=== PATIENT | female | born 1955 | race Caucasian/White ===

== ENCOUNTER → 2019-05-30 11:33 | Outpatient (CLI) | payer BC, SELFPAY ==
--- NOTE | ~2019-05-30 | DEXA_ITS ---
Bone Density Report Name: Eva Goodman Age: 63 Sex: Female Ethnicity: White Date of : 1955 Indication: postmenopausal; screening for osteoporosis; asthma or emphysema; hysterectomy; Referring Provider: MINOO OHARA Study: Bone densitometry was performed. Exam Date: May 30, 2019 Accession number: [id number] Bone Density: Region BMD T-score Z-score Classification AP Spine (L1, L2) 1.410 3.9 5.6 Normal Femoral Neck (Left) 0.807 -0.4 1.1 Normal Total Hip (Left) 1.033 0.7 2.0 Normal Femoral Neck (Right) 0.858 0.1 1.6 Normal Total Hip (Right) 1.025 0.7 1.9 Normal Total Hip Mean 1.029 0.7 2.0 Normal World Health Organization criteria for BMD impression classify patients as: Normal (T-score at or above -1.0), Osteopenia (T-score between -1.0 and -2.5), or Osteoporosis (T-score at or below -2.5). 10-year Fracture Risk: FRAX not reported because: All T-scores for Spine Total, Hip Total, Femoral Neck at or above -1.0 Treated for osteoporosis Clinical Information Provided by Patient: Is being treated for osteoporosis Has used the following medications: HRT (i.e. estrogen/hormone therapy), Vitamin D Has the following medical conditions: Asthma or Emphysema, Hysterectomy Patient maximum height was 65 Menopause Age: 39 Drinks caffeinated beverages Onset of menses at age 11 Number of children 2 Impression: The patient has normal bone mass. Discussion: It is important to ask patients whether they are taking their medications and to encourage continued and appropriate compliance with their osteoporosis therapies to reduce fracture risk. It is also important to review their risk factors and encourage appropriate calcium and vitamin D intakes, exercise, fall prevention and other lifestyle measures. Follow-Up: Consider a repeat BMD and Vertebral Fracture Assessment (VFA) exam in 2 years or sooner if medically necessary, to reassess this patient's status. Reported by: ANTOINETTE on 05/30/2019 12:00:00 PM. Reviewed, dictated and finalized at location AGisele BAUER
== END ==
PROVIDERS: PCP Internal Medicine; Visit Provider Obstetrics & Gynecology Gynecology
DX: Z78.0 Asymptomatic menopausal state (principal)
CPT/HCPCS: 77080

== ENCOUNTER → 2019-12-14 13:50 | Outpatient (CLI) | payer BC, SELFPAY ==
--- NOTE | ~2019-12-14 | US_ITS ---
EXAMINATION: US soft tissue head and neck INDICATION: Localized swelling, mass, and lump of the neck TECHNIQUE: High-resolution targeted ultrasound is performed in the area of clinical concern. COMPARISON: None available FINDINGS: There is a 2.6 x 0.7 x 2.7 cm circumscribed isoechoic mass in the right posterior neck in t he area of clinical concern which has the appearance of a lipoma. No suspicious mass is identified. IMPRESSION: 1. Findings consistent with soft tissue lipoma of the left neck corresponding to the palpable mass. Reviewed, dictated and finalized at location B. IMPRESSION: 1. Findings consistent with soft tissue lipoma of the left neck corresponding t o the palpable mass.
== END ==
PROVIDERS: PCP Internal Medicine; Visit Provider Internal Medicine
DX: D17.0 Benign lipomatous neoplasm of skin and subcutaneous tissue of head, face and neck (principal)
CPT/HCPCS: 76536

== ENCOUNTER 2019-12-26 12:58 | Outpatient (CLI) | payer BC, SELFPAY ==
--- NOTE | ~2019-12-26 | MM_ITS ---
EXAMINATION: MM scrn verónica implant BI w aroldo HISTORY: Screening mammogram TECHNIQUE: Craniocaudal and mediolateral oblique 3-D tomosynthesis images with implant displacement a nd synthetic 2-D images were generated. Craniocaudal and mediolateral oblique views of the breasts wi thout implant displacement were obtained using full field digital mammography. CAD analysis was submi tted and interpreted. COMPARISON: 12/20/2018, 11/18/2017 bilateral implant digital screening mammogram examination BREAST PARENCHYMAL COMPOSITION: There are scattered areas of fibroglandular density. FINDINGS: Status post bilateral augmentation mammoplasty. There is no evidence of suspicious mass, ca lcification, or architectural distortion to suggest malignancy in either breast. There has been no casas spicious interval change. IMPRESSION: 1. No mammographic evidence of malignancy. 2. Recommend routine screening mammography in one year. BI-RADS Category 1: Negative Reviewed, dictated and finalized at location A.
== END 2019-12-26 12:59 | disposition home or self-care (01) ==
PROVIDERS: PCP Internal Medicine; Visit Provider Obstetrics & Gynecology Gynecology
DX: Z12.31 Encounter for screening mammogram for malignant neoplasm of breast (principal)
CPT/HCPCS: 77063; 77067

== ENCOUNTER 2020-07-29 12:24 | Outpatient (CLI) | payer BC, SELFPAY ==
--- NOTE | ~2020-07-29 | CT_ITS ---
EXAMINATION: CT abdomen pelvis w con DATE: 07/29/2020 13:00 INDICATION: Right lower quadrant abdominal pain. TECHNIQUE: Computed tomography (CT) of the abdomen and pelvis was performed with 100 mL Omnipaque 350 intravenous contrast. Automated exposure control and iterative reconstruction technique were employe d. The dose-length product was 669.83 mGy-cm. COMPARISON: None. FINDINGS: The visualized portions of the lung bases demonstrate minimal atelectasis. No pleural effus ion. The heart size is normal. No pericardial effusion. The liver and gallbladder are normal. There i s a 13 mm low-attenuation lesion in the spleen, likely a benign lesion such as a hemangioma or cyst. The pancreas and adrenal glands are normal. There are is cortical thinning of the kidneys. There is m ild right hydroureter. There is a 1 mm stone at right ureterovesicular junction. There is an anastomo sis in the rectosigmoid. There is diverticulosis of the colon without evidence of diverticulitis. The re are no dilated loops of bowel. The appendix is normal. There are no pathologically enlarged lymph nodes. There is no free intraperitoneal fluid. There is severe lumbar spondylosis. IMPRESSION: 1. 1 mm stone at right ureterovesicular junction with mild right hydroureter. Reviewed, dictated and finalized at location A.
[2020-07-29 12:56] LABS: Estimated Glomerular Filt Rate 45
[2020-07-29 13:04] LABS: Basophils Absolute Auto 0.1 K/mm3 (0.0-0.1); Eosinophils Absolute Auto 0.1 K/mm3 (0-0.3); Eosinophils Percent Auto 1.7 % (0-4.4); Hematocrit 41.6 % (37.0-47.0); Hemoglobin 14.1 g/dL (12.0-15.0); Immature Granulocyte Absolute 0.01 K/mm3 (0.00-0.031); Immature Granulocyte Percent A 0.1 % (0-0.5); Lymphocytes Percent Auto 51.9 % (18.3-44.2); Mean Corpuscular HGB Conc 33.9 g/dl (32-36); Mean Corpuscular Hemoglobin 32.3 pg (26-34); Mean Corpuscular Volume 95.2 fl (80-100); Mean Platelet Volume 10.7 fl (7.4-10.4); Monocytes Absolute Auto 0.5 K/mm3 (0.1-0.6); Monocytes Percent Auto 6.6 % (2.6-8.5); Neutrophils Absolute Auto 2.7 K/mm3 (1.3-6.7); Neutrophils Percent Auto 38.7 % (45.5-73.1); Platelet Count Result 280 k/mm3 (150-375); Red Blood Count 4.37 M/mm3 (4.2-5.4); Red Cell Distribution Width 11.7 % (11.5-14.5); White Blood Count 6.9 K/mm3 (4.5-10.0)
[2020-07-29 13:14] LABS: Anion Gap 7 mmol/L (8-16); Blood Urea Nitrogen 26 mg/dL (7-17); Calcium 9.7 mg/dL (8.4-10.2); Carbon Dioxide 30 mmol/L (22-30); Chloride 104 mmol/L (98-107); Estimated Glomerular Filt Rate 50; Glucose 100 mg/dL (65-105); Potassium 4.3 mmol/L (3.4-5.0); Sodium 141 mmol/L (137-145)
== END 2020-07-29 12:25 | disposition home or self-care (01) ==
LOC: ANHIMG 12:27
PROVIDERS: PCP Internal Medicine; Visit Provider Internal Medicine
DX: R10.31 Right lower quadrant pain (principal); Z79.899 Other long term (current) drug therapy; N20.1 Calculus of ureter; N13.4 Hydroureter
CPT/HCPCS: 74177; 80048; 85025; Q9967

== ENCOUNTER 2020-07-31 11:57 | Outpatient (CLI) | payer BC, SELFPAY ==
--- NOTE | ~2020-07-31 | XR_ITS ---
XR abdomen/kub 1V 07/31/2020 12:15 INDICATION: Renal pain TECHNIQUE: KUB COMPARISON: CT dated 07/29/2020 FINDINGS: Bowel gas pattern is normal. There is no evidence of free air, mass, organomegaly, ascites or obstruction. No abnormal calculi are seen. The bones appear intact. IMPRESSION: 1: No acute abdominal abnormality identified. Reviewed, dictated and finalized at location B.
== END 2020-07-31 11:58 | disposition home or self-care (01) ==
PROVIDERS: PCP Internal Medicine; Visit Provider Internal Medicine
DX: N20.0 Calculus of kidney (principal)
CPT/HCPCS: 74018

== ENCOUNTER 2020-12-29 14:51 | Outpatient (CLI) | payer BC, SELFPAY ==
--- NOTE | ~2020-12-29 | MM_ITS ---
EXAMINATION: MM scrn verónica implant BI w aroldo HISTORY: Screening mammogram TECHNIQUE: Craniocaudal and mediolateral oblique 3-D tomosynthesis images with implant displacement a nd synthetic 2-D images were generated. Craniocaudal and mediolateral oblique views of the breasts wi thout implant displacement were obtained using full field digital mammography. CAD analysis was submi tted and interpreted. COMPARISON: Comparison to multiple prior studies sequentially, with oldest reviewed study dated 11/18. BREAST PARENCHYMAL COMPOSITION: There are scattered areas of fibroglandular density. FINDINGS: There are subglandular silicone implants. There is no evidence of suspicious mass, calcific ation, or architectural distortion to suggest malignancy in either breast. There has been no suspicio us interval change. IMPRESSION: 1. No mammographic evidence of malignancy. 2. Recommend routine screening mammography in one year. BI-RADS Category 1: Negative Reviewed, dictated and finalized at location A.
== END 2020-12-29 14:52 | disposition home or self-care (01) ==
LOC: ANHIMG 14:54
PROVIDERS: PCP Internal Medicine; Visit Provider Obstetrics & Gynecology Gynecology
DX: Z12.31 Encounter for screening mammogram for malignant neoplasm of breast (principal)
CPT/HCPCS: 77063; 77067

== ENCOUNTER 2021-02-20 20:45 | Emergency (ER) | payer BC, SELFPAY ==
--- NOTE | ~2021-02-20 | CT_ITS ---
EXAMINATION: CT soft tissue neck w con DATE: 02/20/2021 21:57 INDICATION: Syncope and bleeding complication post jamming left earlier in the day. TECHNIQUE: Computed tomography (CT) of the neck was performed with 75 mL Omnipaque-350 intravenous co ntrast. Automated exposure control and iterative reconstruction technique were employed. The dose-grisel gth product was 577.68 mGy-cm. COMPARISON: None FINDINGS: Postoperative changes at the face and neck consistent with reported history of recent chin left. Ther e is a surgical drain entering the subcutaneous tissues posterior to the left ear, extending inferior ly across the neck at the level of the thyroid cartilage and cephalad in the right submandibular rigo on with distal tip lateral to the body of the right mandible. Numerous small foci of scattered postop erative subcutaneous gas extending from the submental region cephalad along the left and right sides of the face. There is a minimal amount of nonloculated fluid tracking along the tissue planes of the more caudal neck predominantly along the strap and struck with a mastoid muscles and along the periph david of the right thyroid lobe. No significant loculated hematomas or evident active extravasation. No evident masses or mass effect. Thyroid gland, submandibular glands and parotid glands are normal and symmetric. No pathologically enlarged cervical lymphadenopathy. Airway and visualized portions of th e upper lungs are clear. Visualized superior mediastinum is unremarkable with normal caliber aortic a rch. Small amount of nonhemodynamically significant atherosclerotic plaque at the bilateral carotid b ulbs. Cervical vasculature is otherwise unremarkable. Orbits are normal. The paranasal sinuses, masto id air cells and middle ear cavities are clear. Severe cervical spondylosis. IMPRESSION: 1. Subcutaneous surgical drain with expected small amount of scattered postoperative subcutaneous gas and nonloculated fluid at the face and neck as detailed above. No significant hematomas or active ex travasation. Reviewed, dictated and finalized at location A. 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 Subcutaneous surgical drain with expected small amount of scattered postoper ative subcutaneous gas and nonloculated fluid at the face and neck as detailed above. No significant hematomas or active extravasation.
--- NOTE | 2021-02-20 20:59 | ECG_ITS ---
Measurements Intervals [place] Rate: 83 P: 45 MI: 167 QRS: -9 QRSD: 99 T: 24 QT: 398 QTc: 469 Interpretive Statements SINUS RHYTHM VOLTAGE CRITERIA FOR LVH BORDERLINE R WAVE PROGRESSION, ANTERIOR LEADS BORDERLINE T WAVE ABNORMALITY- ANT/INF LEADS BORDERLINE ECG Electronically Signed On 02-21-2021 7:56:51 COMPENSATION EXPERT by Nishant Kim D.O.
[2021-02-20 21:01] VITALS: BP 144/78; PULSE 83; RESP 20; TEMP 36.9; O2SAT 98
[2021-02-20] MEDS: ONDANSETRON INJ 4 MG/2 ML VIAL IV PUSH ×2 (21:18→22:06)
[2021-02-20] MEDS: SODIUM CHLORIDE 0.9% IV 1,000 ML 999 ML IV CONT (21:18)
[2021-02-20 21:25] LABS: Basophils Absolute Auto 0.1 K/mm3 (0.0-0.1); Basophils Percent Auto 0.4 % (0.2-1.2); Eosinophils Absolute Auto 0.1 K/mm3 (0-0.3); Eosinophils Percent Auto 0.4 % (0-4.4); Hematocrit 39.6 % (37.0-47.0); Hemoglobin 14.1 g/dL (12.0-15.0); Immature Granulocyte Absolute 0.05 K/mm3 (0.00-0.031); Immature Granulocyte Percent A 0.3 % (0-0.5); Lymphocytes Absolute Auto 4.48 K/mm3 (0.9-3.2); Lymphocytes Percent Auto 29.8 % (18.3-44.2); Mean Corpuscular HGB Conc 35.6 g/dl (32-36); Mean Corpuscular Hemoglobin 33.1 pg (26-34); Mean Platelet Volume 9.8 fl (7.4-10.4); Monocytes Percent Auto 6.5 % (2.6-8.5); Neutrophils Absolute Auto 9.4 K/mm3 (1.3-6.7); Neutrophils Percent Auto 62.6 % (45.5-73.1); Platelet Count Result 313 k/mm3 (150-375); Red Blood Count 4.26 M/mm3 (4.2-5.4); Red Cell Distribution Width 11.9 % (11.5-14.5)
--- NOTE | 2021-02-20 21:32 | ED.SYNCOPE ---
HPI - Syncope General Chief Complaint: Syncope Stated Complaint: ?syncope Time Seen by Provider: 02/20/21 20:57 Source: patient History of Present Illness HPI narrative: Patient presents with syncope. Reports she was at [facility] and had a neck left . She reports procedure lasted an extra hour because there was bleeding. She was discharged home was eating soup felt like she was going to pass out then does not member what happened next. Event was witnessed by her who caught her before she struck the ground. reports she was out of it for approximately 4 minutes she urinated on herself and when she came to she is feeling nauseous and throughout. He called EMS and brought her in for evaluation. Patient reports she continues to feel out of it for which continued nausea. She does not feel like herself. Shortness achiness around her procedure site denies any chest pain shortness of breath or abdominal pain. Family reports she has not eaten much today due to her procedure she has been taking her Percocet postprocedure. Related Data Home Medications Medication Instructions Recorded Confirmed celecoxib [Celebrex] 400 mg PO DAILY 02/20/21 estradiol 0.5 mg PO DAILY 02/20/21 moxifloxacin 400 mg PO DAILY 02/20/21 oxycodone-acetaminophen [Percocet] tablet PO Q4-6H PRN 02/20/21 Allergies Allergy/AdvReac Type Severity Reaction Status Date / Time cefadroxil Allergy Unknown Unknown Verified 08/14/20 08:40 Cephalosporins Allergy Unknown Unknown Verified 08/14/20 08:40 morphine Allergy Unknown Unknown Verified 08/14/20 08:40 Penicillins Allergy Unknown Unknown Verified 08/14/20 08:40 Sulfa (Sulfonamide Allergy Unknown Unknown Verified 08/14/20 08:40 Antibiotics) Review of Systems Review of Systems: CONSTITUTIONAL: Denies fever, chills, or sweats. EYES: Denies visual changes, redness, or discharge. ENT: Denies rhinorrhea, congestion, sore throat, or otalgia. CARDIOVASCULAR: Denies chest pain, palpitations, or edema. RESPIRATORY: Denies cough or dyspnea. GASTROINTESTINAL: Denies abdominal pain, nausea, vomiting, or diarrhea. GENITOURINARY: Denies dysuria or hematuria. SKIN: Denies rash or itching. MUSCULOSKELETAL: Denies back pain, joint pain, or myalgia. NEUROLOGIC: Denies headache, numbness, or focal weakness. PSYCHIATRIC: Denies anxiety or depression. 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 HEAD: Normocephalic, atraumatic. EYES: PERRLA and EOMI. ENT: Nares clear, no rhinorrhea or epistaxis. Mucous membranes moist. NECK: Supple. No masses. No JVD CHEST: Clear to auscultation. No respiratory distress. No wheezes rales or rhonchi HEART: Regular rate and rhythm. No murmur heard. Normal peripheral pulses. ABDOMEN: Soft, nontender, nondistended, normal active bowel sounds. EXTREMITIES: Normal range of motion. No edema. SKIN: Warm, dry, no rash. NEURO: No focal deficits. Alert and oriented x3. PSYCH: Normal mood and affect. Course Reevaluation(s) Reevaluation #1: Patient reports feeling much improved after supportive therapies. Results and plan reviewed with patient. Patient is comfortable with outpatient bebeto
[2021-02-20 21:33] LABS: Alanine Aminotransferase 30 U/L (4-35); Albumin Level 4.8 g/dL (3.5-5.1); Alkaline Phosphatase 61 U/L (38-126); Anion Gap 11 mmol/L (8-16); Aspartate Amino Transferase 27 U/L (14-36); Bilirubin,Total 0.5 mg/dL (0.2-1.3); Blood Urea Nitrogen 30 mg/dL (7-17); Carbon Dioxide 23 mmol/L (22-30); Chloride 99 mmol/L (98-107); Estimated Glomerular Filt Rate > 60; Glucose 171 mg/dL (65-110); Potassium 3.3 mmol/L (3.4-5.0); Sodium 133 mmol/L (137-145)
[2021-02-20] MEDS: PROCHLORPERAZINE EDISYLATE 10 MG/2 ML VIAL IV PUSH (22:42)
[2021-02-20] MEDS: DEXTROSE 5%/0.45% SOD CHL 1,000 ML 500 ML IV CONT (22:42)
[2021-02-20 22:45] VITALS: BP 138/60; PULSE 78; RESP 18; O2SAT 99
--- NOTE | 2021-02-20 23:20 | PC.NURSE ---
Assuming care of pt. Pt discharged at this time pt and requesting to finish IV fluids before they go.
[2021-02-21 01:38] VITALS: BP 122/69; PULSE 84; RESP 16; O2SAT 94
== END 2021-02-21 01:39 | disposition home or self-care (01) ==
PROVIDERS: Emergency Provider Emergency Medicine; PCP Internal Medicine
DX: R55 Syncope and collapse (principal); Z98.890 Other specified postprocedural states; R73.03 Prediabetes; E55.9 Vitamin D deficiency, unspecified; F41.9 Anxiety disorder, unspecified; Z90.49 Acquired absence of other specified parts of digestive tract; R94.31 Abnormal electrocardiogram [ECG] [EKG]
CPT/HCPCS: 36415; 70491; 80053; 85025; 93005; 96361; 96365; 96375; 96376; 99285; J0131; J0780; J2405; J7030; Q9967

== ENCOUNTER → 2021-04-21 | Outpatient (REF) | payer BC, SELFPAY | END | disposition home or self-care (01) | LOC: ANHLAB 13:52 | PROVIDERS: PCP Internal Medicine; Visit Provider Nurse Practitioner | DX: L30.8 Other specified dermatitis (principal) | CPT/HCPCS: 88305; 88342 ==

== ENCOUNTER 2021-06-01 10:17 | Outpatient (CLI) | payer BC, SELFPAY ==
--- NOTE | ~2021-06-01 | CT_ITS ---
EXAMINATION: CT chest high resolution [facility] EXAM DATE: 06/01/2021 10:36 INDICATION: D86.3 - Sarcoidosis of skin . TECHNIQUE: Spiral CT of the chest without contrast. HRCT. Axial, coronal and sagittal images of the chest were reviewed. Coronal maximum intensity pixel images of chest reviewed. The dose-length prod uct (DLP) for this examination was 276.14 mGy-cm. The exposure was tailored according to patient siz e (auto mA exposure control), and iterative reconstruction (ASIR) was used as additional dose reducti on technique. There is no prior study for comparison. FINDINGS: No interstitial lung disease evident on HRCT. The lungs are clear. There are no pleural or pericardial effusions. Tracheobronchial tree is patent. There is no mediastinal, hilar or axilla ry lymphadenopathy. There is no pneumothorax. Heart normal in size. There is mild coronary adebayo rial calcification, arterial sclerosis. Upper abdomen is unremarkable. There is mild thoracic spon dylosis without osteoblastic or osteolytic lesions identified. IMPRESSION: Unremarkable CT chest exam. Reviewed, dictated and finalized at location B. ETING SALES MANAGER IMPRESSION: Unremarkable CT chest exam.
== END 2021-06-01 10:18 | disposition home or self-care (01) ==
LOC: ANHIMG 10:22
PROVIDERS: PCP Internal Medicine; Visit Provider Internal Medicine
DX: D86.3 Sarcoidosis of skin (principal)
CPT/HCPCS: 71250

== ENCOUNTER 2022-02-10 08:33 | Outpatient (CLI) | payer BC, SELFPAY ==
--- NOTE | ~2022-02-10 | MM_ITS ---
EXAMINATION: MM scrn verónica implant BI w aroldo HISTORY: Screening mammogram TECHNIQUE: Craniocaudal and mediolateral oblique 3-D tomosynthesis images with implant displacement a nd synthetic 2-D images were generated. Craniocaudal and mediolateral oblique views of the breasts wi thout implant displacement were obtained using full field digital mammography. CAD analysis was submi tted and interpreted. COMPARISON: 12/29/2020, 12/26/2019, 12/2018 bilateral implant screening mammogram examinations BREAST PARENCHYMAL COMPOSITION: There are scattered areas of fibroglandular density. FINDINGS: Status post bilateral augmentation mammoplasty. There is no evidence of suspicious mass, ca lcification, or architectural distortion to suggest malignancy in either breast. There has been no casas spicious interval change. IMPRESSION: 1. No mammographic evidence of malignancy. 2. Recommend routine screening mammography in one year. BI-RADS Category 1: Negative Reviewed, dictated and finalized at location A. SORTER
== END 2022-02-10 08:34 | disposition home or self-care (01) ==
PROVIDERS: PCP Internal Medicine; Visit Provider Obstetrics & Gynecology Gynecology
DX: Z12.31 Encounter for screening mammogram for malignant neoplasm of breast (principal)
CPT/HCPCS: 77063; 77067

== ENCOUNTER 2022-06-01 16:59 | Outpatient (CLI) | payer BC, SELFPAY ==
--- NOTE | ~2022-06-01 | CT_ITS ---
EXAMINATION: CT abdomen pelvis wo con DATE: 06/01/2022 17:09 INDICATION: abdominal pain and fullness- r/o hernia TECHNIQUE: Computed tomography (CT) of the abdomen and pelvis was performed without intravenous contr ast. Automated exposure control and iterative reconstruction technique were employed. The dose-length product was 792.62 mGy-cm. COMPARISON: 07/29/2020. FINDINGS: Lower thorax: Bilateral calcified breast implants. Aortic valve calcification. Liver: Normal. Biliary/Gallbladder: Gallbladder is normal. No bile duct dilation. Pancreas: No mass or duct dilation. Spleen: Stable splenic cyst or hemangioma. Adrenals:No mass. Kidneys: No mass, stone, or hydronephrosis. GI tract: Uncomplicated rectosigmoid anastomosis. No small or large bowel dilation. Normal appendix. Diverticulosis without diverticulitis. Mesentery/Peritoneum: No ascites, mass, or free air. Retroperitoneum: No mass. Atherosclerotic abdominal aortic and/or arterial calcifications. Pelvis: Pelvic organs are within normal limits. Soft Tissues: Soft tissues and body wall unremarkable. Bones: No acute osseous finding. IMPRESSION: No acute abdominal pelvic process detected. Reviewed, dictated and finalized at location K. LY PRESERVATION CASEWORKER
== END 2022-06-01 17:00 | disposition home or self-care (01) ==
LOC: ANHIMG 17:00
PROVIDERS: PCP Internal Medicine; Visit Provider Internal Medicine
DX: R10.31 Right lower quadrant pain (principal)
CPT/HCPCS: 74176

== ENCOUNTER 2022-10-11 12:13 | Observation (INO) | payer BC, SELFPAY ==
[2022-10-11] VITALS (12 sets, daily range): BP systolic 103–146; BP diastolic 45–76; PULSE 67–76; RESP 14–21; TEMP 35.8–36.4; O2SAT 90–98
--- NOTE | ~2022-10-11 | US_ITS ---
EXAMINATION: US carotid duplex BI DATE: 10/12/2022 10:36 INDICATION: Syncope TECHNIQUE: Grayscale, color Doppler, and pulsed Doppler images of the cervical carotid arteries were obtained. The degree of vessel stenosis is placed in one of the following categories: normal, <50%, 5 0-69%, >=70% but less than near-occlusion, near-occlusion, or total occlusion. Note that percent sten osis relative to normal distal artery lumen diameter is indirectly measured from velocity measurement s as described by Matteo, et al. Radiology 2003; 229:340-346. COMPARISON: None. FINDINGS: RIGHT: The right common carotid artery (CCA) peak systolic velocity (PSV) is 153 cm/s. The right internal ca rotid artery (ICA) PSV is 117 cm/s. The right ICA end-diastolic velocity (EDV) is 23 cm/s. The right ICA/CCA PSV ratio is 0.8. Grayscale and color Doppler images yield an estimate of <50% diameter reduc tion from plaque in the ICA. The external carotid artery (ECA) PSV is 109 cm/s. There is antegrade fl ow in the right vertebral artery. LEFT: The left CCA PSV is 138 cm/s. The left ICA PSV is 86 cm/s. The left ICA EDV is 26 cm/s. The left ICA/ CCA PSV ratio is 0.6. Grayscale and color Doppler images yield an estimate of <50% diameter reduction from plaque in the ICA. The ECA PSV is 52 cm/s. There is antegrade flow in the left vertebral artery . IMPRESSION: 1. <50% stenosis in the right internal carotid artery. 2. <50% stenosis in the left internal carotid artery. Reviewed, dictated and finalized at location A.
--- NOTE | 2022-10-11 12:22 | ECG_ITS ---
Measurements Intervals [place] Rate: 65 P: 23 PA: 189 QRS: -4 QRSD: 97 T: 24 QT: 410 QTc: 429 Interpretive Statements SINUS RHYTHM DELAYED PRECORDIAL R/S TRANSITION CONSIDER INFERIOR INFARCT, AGE INDETERMINATE BASELINE ARTIFACT- V6 ABNORMAL ECG COMPARED TO ECG 02/20/2021 21:12:26 NO SIGNIFICANT CHANGES Electronically Signed On 10-11-2022 12:45:03 CDT by Nishant Kim D.O.
[2022-10-11 12:42] LABS: Basophils Percent Auto 0.4 % (0.2-1.2); Eosinophils Absolute Auto 0.1 K/mm3 (0-0.3); Hemoglobin 12.9 g/dL (12.0-15.0); Immature Granulocyte Absolute 0.03 K/mm3 (0.00-0.031); Immature Granulocyte Percent A 0.3 % (0-0.5); Lymphocytes Absolute Auto 3.25 K/mm3 (0.9-3.2); Lymphocytes Percent Auto 34.6 % (18.3-44.2); Mean Corpuscular HGB Conc 33.9 g/dl (32-36); Mean Corpuscular Hemoglobin 32.2 pg (26-34); Mean Corpuscular Volume 94.8 fl (80-100); Mean Platelet Volume 10.3 fl (7.4-10.4); Monocytes Absolute Auto 0.5 K/mm3 (0.1-0.6); Monocytes Percent Auto 5.2 % (2.6-8.5); Neutrophils Absolute Auto 5.5 K/mm3 (1.3-6.7); Neutrophils Percent Auto 58.5 % (45.5-73.1); Platelet Count Result 258 k/mm3 (150-375); Red Blood Count 4.01 M/mm3 (4.2-5.4); Red Cell Distribution Width 12.1 % (11.5-14.5); White Blood Count 9.4 K/mm3 (4.5-10.0)
[2022-10-11 12:55] LABS: Alanine Aminotransferase 28 U/L (6-35); Albumin Level 4.6 g/dL (3.5-5.1); Alkaline Phosphatase 46 U/L (38-126); Anion Gap 13 mmol/L (8-16); Aspartate Amino Transferase 25 U/L (14-36); Bilirubin,Total 0.7 mg/dL (0.2-1.3); Blood Urea Nitrogen 45 mg/dL (7-17); Calcium 9.5 mg/dL (8.4-10.2); Carbon Dioxide 20 mmol/L (22-30); Chloride 104 mmol/L (98-107); Estimated CRCL calculation 29 ml/min; Estimated Glomerular Filt Rate 28; Glucose 149 mg/dL (65-110); Potassium 3.3 mmol/L (3.4-5.0); Sodium 137 mmol/L (137-145)
--- NOTE | 2022-10-11 13:31 | ED.SYNCOPE ---
HPI - Syncope General Chief Complaint: Syncope Stated Complaint: syncope Time Seen by Provider: 10/11/22 13:03 History of Present Illness HPI narrative: Patient is a 67-year-old female with a history of hypothyroidism, hypertension, hyperlipidemia presenting with a syncopal episode. Patient states that she got up this morning was unable to complete her daily walk without issues. Later in the morning she had an episode while she was standing where she felt extremely hot. States that then she developed tunnel vision and syncopized. States that she immediately started vomiting when she regained consciousness. EMS was called who gave her some Zofran and patient states that she feels improved. States that she still has some waves of nausea. She denies any chest pain, shortness of breath, leg swelling, palpitations, numbness or weakness. States that she has been on a low-carb diet for the last several months in an attempt to lose weight. States that she has not been drinking her normal amount of daily fluids. Related Data Home Medications Medication Instructions Recorded Confirmed estradiol 0.5 mg tablet 1 mg PO DAILY 02/20/21 10/11/22 alprazolam 0.25 mg tablet 0.25 mg PO BID PRN anxiety 10/11/22 10/11/22 Allergies Allergy/AdvReac Type Severity Reaction Status Date / Time cefadroxil Allergy Unknown Swelling Verified 10/11/22 17:52 Cephalosporins Allergy Unknown Unknown Verified 10/11/22 17:52 morphine Allergy Unknown Unknown Verified 10/11/22 17:52 Penicillins Allergy Unknown Unknown Verified 10/11/22 17:52 Sulfa (Sulfonamide Allergy Unknown Unknown Verified 10/11/22 17:52 Antibiotics) Review of Systems Review of Systems: All systems reviewed & are unremarkable except as noted in HPI and below PMFSH Past Medical History Medical History (Updated 10/18/22 @ 15:31 by Stacy Croft MD) Anxiety Chronic pain Cutaneous sarcoidosis Degenerative joint disease Prediabetes Vitamin D deficiency Surgical History Surgical History (Updated 10/11/22 @ 16:06 by Cailin Purdy PA-C) History of abdominoplasty History of bilateral knee replacement History of bowel resection History of total abdominal hysterectomy and bilateral salpingo-oophorectomy Family History Family History Other Cerebrovascular accident Diabetes mellitus Heart disease Hypertension Social History Social History Social History: Surrogate medical decision maker: Grayson Goodman, spouse. Code status: Full code. Smoking status: Never smoker Alcohol intake: never Substance use: never Substance use type: does not use Lack of Transportation: No Lack of Food: Never True Current Housing: I Have Housing Concerned About Future Housing: No Difficulty Paying Gas/Electric Bills: No Difficulty Paying for Meds: No Currently Unemployed: No Education: Don't Know Difficulty w/ Childcare or Family Care: No Living arrangements: with family Additional living arrangements comments: Lives with spouse in [place]. 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 Spiritual care concerns: No Exam Narrative: GENERAL: Well-appearing, well-nourished, and in no acute distress. Pleasant and cooperative HEAD: Normocephalic, atraumatic. EYES: PERRLA and EOMI. ENT: Nares clear, no rhinorrhea or epistaxis. Mucous membranes slightly dry NECK: Supple. CHEST: Clear to auscultation. No respiratory distress. HEART: Regular rate and rhythm. No murmur heard. Normal peripheral pulses. ABDOMEN: Soft, nontender, nondistended EXTREMITIES: Normal range of motion. No edema. SKIN: Warm, dry, no rash. NEURO: No focal deficits. Alert and oriented x3. PSYCH: Normal mood and affect. Course Vital Signs Vital signs: Vital Signs Temperature 97.6 F 10/11/22 12:15 Pulse Rate 7
[2022-10-11] MEDS: SODIUM CHLORIDE 0.9% IV 1,000 ML 999 ML IV CONT ×3 (13:50→16:31)
[2022-10-11] MEDS: ONDANSETRON INJ 4 MG/2 ML VIAL IV PUSH (13:50)
[2022-10-11 14:11] LABS: Lipase 211 U/L (23-300); Magnesium 1.7 mg/dL (1.6-2.3)
[2022-10-11 14:24] LABS: Troponin I < 0.012 ng/mL (0.000-0.034)
[2022-10-11 15:17] LABS: Add Urine Microscopic? YES; Appearance Urine Clear (Clear); Bacteria Urine None Seen /hpf; Bilirubin Urine Negative (Negative); Blood Urine Negative (Negative); Color Urine Yellow (Yellow); Glucose Urine UA Negative (Negative); Hyaline Casts Urine Present /lpf; Ketones Urine Negative (Negative); Leukocyte Esterase Ur Negative LEU/UL (Negative); Nitrate Urine Negative (Negative); Protein Urine Trace mg/dL (Negative); RBC Urine 0-2 /hpf (0-2); Specific Grav Ur 1.016 (1.001-1.035); Squamous Epithelial Cell Urine Occasional /hpf (Few); Urobilinogen Urine 0.2 mg/dL (<2.0); WBC Urine 0-5 /hpf; pH Urine 5.5 (5.0-9.0)
--- NOTE | 2022-10-11 16:01 | PM.IMHP ---
H&P: HPI History of Present Illness Date/Time: 10/11/22 16:15 Chief Complaint: Syncope. Narrative: This is a very pleasant 67-year-old female with hypertension, hyperlipidemia, and hypothyroidism who presented to the emergency department via EMS for evaluation after a syncopal episode. The patient provides the following history. She felt fine when she got up this morning and went on a 2 mi walk per usual. 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 While at 1 of the appointments she was standing up speaking to her friend when she suddenly felt hot and lightheaded. Her vision started to darken, she was weak, and luckily a bystander was able to catch her and lower her down so she did not fall. She briefly lost consciousness and when she came to she had 1 episode of emesis. She has been trying to lose weight recently and has been taking Wegovy weekly for the last several weeks. She has been on a low carbohydrate diet and she doesn't think she has been eating or drinking enough. She has been busy planning the aforementioned event and she got back from a trip to [place] this past Tuesday and she admits that it was very hot and again she probably did not have enough oral intake. On arrival to the emergency department her blood pressure was 129/76. Labs were significant for a sodium of 137, potassium 3.3, carbon dioxide 20, BUN 45, creatinine 1.80, glucose 149. EKG showed sinus rhythm with delayed precordial R/S transition QTC 429, and Q-waves in lead 3. She received 3 L of IV fluid in the ED and she was admitted to the floor for further treatment and observation. She has no known history of kidney disease. She is on lisinopril, hydrochlorothiazide, 800 mg of ibuprofen twice a day (has taken for many years for arthritic pain) and she has not had any recent change in medications. No fever, chills, sweats, or recent illnesses. She denies chest pain, pleuritic pain, and shortness of breath. Review of Systems Review of Systems: Twelve systems were reviewed and are negative except for as per HPI. [facility] Past Medical History Medical History (Updated 10/12/22 @ 00:37 by Cailin Purdy PA-C) Anxiety Chronic pain Cutaneous sarcoidosis Degenerative joint disease Prediabetes Vitamin D deficiency Surgical History Surgical History (Updated 10/11/22 @ 16:06 by Cailin Purdy PA-C) History of abdominoplasty History of bilateral knee replacement History of bowel resection History of total abdominal hysterectomy and bilateral salpingo-oophorectomy Family History Family History Other Cerebrovascular accident Diabetes mellitus Heart disease Hypertension Social History Social History Social History: Surrogate medical decision maker: Grayson Maxine, spouse. Code status: Full code. Smoking status: Never smoker Alcohol intake: never Substance use: never Substance use type: does not use Lack of Transportation: No Lack of Food: Never True Current Housing: I Have Housing Concerned About Future Housing: No Difficulty Paying Gas/Electric Bills: No Difficulty Paying for Meds: No Currently Unemployed: No Education: Don't Know Difficulty w/ Childcare or Family Care: No Living arrangements: with family Additional living arrangements comments: Lives with spouse in [place]. 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 Spiritual care concerns: No Meds Home Medications and Allergies Home Medications Medication Instructions Recorded Confirmed Type estradiol 0.5 mg tablet 1 mg PO DAILY 02/20/21 10/11/22 History rosuvastatin 40 mg tablet 40 mg PO DAILY #90 tabs 12/08/21 10/11/22 Rx ezetimibe 10 mg tablet (Zetia) 10 mg PO DAILY #90 tabs 07/05/22 10/11/22 Rx valacyclovir 1 gram tablet 1,000 mg PO TI
[2022-10-11] MEDS: POTASSIUM CHLORIDE 20 MEQ ER TABLET 40 MEQ PO (16:31)
[2022-10-11] MEDS: ALPRAZolam (*CRX) 0.5 MG TABLET PO (16:31)
--- NOTE | 2022-10-11 17:37 | ADMGEN ---
This patient, Eva Goodman, was admitted to Medical Room 252-01. Patient/family oriented to hospital policies and general routines including ID bracelet, bed and alarms, visiting hours, pain management, procedures, bathroom and other care routines, personal items, smoking policy, room service/diet, and visiting hours. Information on how to activate the Rapid Response Team has been discussed. Patient/Family are encouraged to report perceived risks to care and to ask questions if they do not understand what they are told or what they should do.
[2022-10-12] VITALS (8 sets, daily range): BP systolic 95–135; BP diastolic 50–65; PULSE 67–85; RESP 17; TEMP 36.1; O2SAT 97
[2022-10-12] MEDS: LACTATED RINGERS 1,000 ML 125 ML IV CONT
[2022-10-12] MEDS: LEVOTHYROXINE SODIUM 125 MCG TABLET PO (05:30)
[2022-10-12 05:45] LABS: Hemoglobin 11.4 g/dL (12.0-15.0); Mean Corpuscular HGB Conc 33.5 g/dl (32-36); Mean Corpuscular Hemoglobin 32.8 pg (26-34); Mean Corpuscular Volume 97.7 fl (80-100); Mean Platelet Volume 10.1 fl (7.4-10.4); Platelet Count Result 215 k/mm3 (150-375); Red Blood Count 3.48 M/mm3 (4.2-5.4); Red Cell Distribution Width 12.4 % (11.5-14.5); White Blood Count 8.9 K/mm3 (4.5-10.0)
[2022-10-12 06:02] LABS: Anion Gap 0 mmol/L (8-16); Blood Urea Nitrogen 34 mg/dL (7-17); Calcium 8.4 mg/dL (8.4-10.2); Carbon Dioxide 29 mmol/L (22-30); Chloride 107 mmol/L (98-107); Estimated CRCL calculation 43 ml/min; Estimated Glomerular Filt Rate 45; Glucose 110 mg/dL (65-110); Magnesium 1.9 mg/dL (1.6-2.3); Potassium 4.1 mmol/L (3.4-5.0); Sodium 136 mmol/L (137-145)
[2022-10-12] MEDS: ROSUVASTATIN 10 MG TABLET 40 MG PO (08:54)
[2022-10-12] MEDS: estradioL 1 MG TABLET PO (08:54)
[2022-10-12] MEDS: EZETIMIBE 10 MG TABLET PO (08:54)
[2022-10-12] MEDS: valACYclovir HCL 500 MG TABLET 1000 MG PO (08:57)
--- NOTE | 2022-10-12 11:29 | PM.DS ---
DS: Admitting Diagnosis Discharge Date 10/12/2022 Admitting Diagnosis Syncope Acute kidney injury Dehydration Hypokalemia Heart murmur Anxiety DS: Discharge Diagnosis Discharge Diagnosis (1) Syncope: Code(s): R55 - Syncope and collapse Status: Acute (2) Acute kidney injury: Code(s): N17.9 - Acute kidney failure, unspecified Status: Acute (3) Hypokalemia: Code(s): E87.6 - Hypokalemia Status: Acute (4) Dehydration: Code(s): E86.0 - Dehydration Status: Acute (5) Heart murmur: Code(s): R01.1 - Cardiac murmur, unspecified Status: Acute (6) Anxiety: Code(s): F41.9 - Anxiety disorder, unspecified Status: Acute DS: Summary Hospital Course Reason for hospitalization: This is a 67 year old female patient who was evaluated in the emergency department after an episode of syncope. She was found to have acute kidney injury with an elevated creatinine to 1.8. Patient was also deemed to be profoundly dehydrated. Hospital Course: Patient was admitted to the hospital status post 3 L of IV fluid resuscitation for severe dehydration with syncope and DARLENE. Patient reports no events overnight but 1 episode of explosive diarrhea this morning. Labs were redrawn this morning show creatinine has improved to 1.2. Incidentally, patient's primary care provider Dr. Mays saw the patient in the hospital and stated that he does not want her to take lisinopril/ HCTZ until follow-up in the clinic. Carotid Dopplers were completed with less than 50% stenosis bilaterally. patient now feels back to baseline is eating and drinking pain med and having urine output regularly that is clear in color. Patient has a known cardiac murmur on for the last 45 years that has been stable and unchanged. Echo was ordered due to syncope and murmur but patient does not want to stay for this test as Dr. Mays told her it probably wasn't needed. Outpatient echo ordered and in patient order canceled. Status at Discharge Cognitive/behavioral status at discharge: Awake, alert, oriented and pleasant Functional status at discharge: independent ambulation Time Spent with Patient Time attestation: Total time spent providing and/or coordinating discharge services: Time spent: Less than 30 minutes Exam Narrative: Const:?? Well-developed fe male seated uprigh t on the edge of t he bed in no acute distress. ? HENMT:?? Normocephalic, at raumatic. Nares pa tent. Moist mucous membranes. ? Eyes:?? Pupils are reacti ve.? Extraocular m otions intact.? Sc lerae anicteric. ? Neck:?? Supple. No JVD or obvious bruits. ? Resp:?? Respirations are nonlabored and tobin gs are clear to au scultation. ? Cardio:?? Regular rate rhyt hm with normal S1- S2. Soft systolic murmur at the left sternal border. ? GI:?? Abdomen is soft, nontender, nondist ended with positiv e bowel sounds. ? Skin:?? Warm, dry, and ta n. ? Neuro:?? Alert. Cranial ne rves 2-12 are jose antonio sly intact. No reji ss focal deficits to casual conversa tion. ? Extrem:?? No cyanosis, club santhosh, or edema. Pe ripheral pulses in tact. No palpable knots or cords. ? Psych:?? Pleasant and coop
== END 2022-10-12 12:29 | disposition home or self-care (01) ==
LOC: ANHED 13:06 → ANH2MED 17:14
PROVIDERS: Physician Assistant; Preventive Medicine Aerospace Medicine; Admitting Provider Internal Medicine; Emergency Provider Emergency Medicine; PCP Internal Medicine; Visit Provider Internal Medicine
DX: R55 Syncope and collapse (principal); N17.9 Acute kidney failure, unspecified; E87.6 Hypokalemia; E86.0 Dehydration; R01.1 Cardiac murmur, unspecified; F41.9 Anxiety disorder, unspecified; E03.9 Hypothyroidism, unspecified; I10 Essential (primary) hypertension; E78.5 Hyperlipidemia, unspecified; R11.2 Nausea with vomiting, unspecified; E55.9 Vitamin D deficiency, unspecified; R94.31 Abnormal electrocardiogram [ECG] [EKG]; R73.03 Prediabetes; R79.89 Other specified abnormal findings of blood chemistry; F17.210 Nicotine dependence, cigarettes, uncomplicated; Z79.890 Hormone replacement therapy; Z79.891 Long term (current) use of opiate analgesic; Z82.49 Family history of ischemic heart disease and other diseases of the circulatory system
CPT/HCPCS: 36415; 80048; 80053; 81001; 83690; 83735; 84484; 85025; 85027; 93005; 93880; 96361; 96374; 99285; A9270; G0378; J2405; J7030; J7120

== ENCOUNTER 2023-04-13 09:02 | Outpatient (CLI) | payer BC, SELFPAY ==
--- NOTE | ~2023-04-13 | MM_ITS ---
EXAMINATION: MM scrn verónica implant BI w aroldo HISTORY: Screening mammogram TECHNIQUE: Craniocaudal and mediolateral oblique 3-D tomosynthesis images with implant displacement a nd synthetic 2-D images were generated. Craniocaudal and mediolateral oblique views of the breasts wi thout implant displacement were obtained using full field digital mammography. CAD analysis was submi tted and interpreted. COMPARISON: 02/10/2022, 12/29/2020, 12/26/2019 BREAST PARENCHYMAL COMPOSITION: There are scattered areas of fibroglandular density. FINDINGS: There is no evidence of suspicious mass, calcification, or architectural distortion to sugg est malignancy in either breast. There has been no suspicious interval change. IMPRESSION: 1. No mammographic evidence of malignancy. 2. Recommend routine screening mammography in one year. BI-RADS Category 1: Negative Reviewed, dictated and finalized at location A. ICAL PLANT WORKER
== END 2023-04-13 09:03 | disposition home or self-care (01) ==
LOC: ANHIMG 09:06
PROVIDERS: PCP Internal Medicine; Visit Provider Obstetrics & Gynecology Gynecology
DX: Z12.31 Encounter for screening mammogram for malignant neoplasm of breast (principal)
CPT/HCPCS: 77063; 77067

== ENCOUNTER 2023-05-24 13:09 | Outpatient (CLI) | payer BC, SELFPAY ==
--- NOTE | ~2023-05-24 | DEXA_ITS ---
Bone Density Report Name: SATYA RAI Age: 67 Sex: Female Ethnicity: White Date of : 1955 Indication: postmenopausal; screening for osteoporosis; height loss; hysterectomy; Referring Provider: MINOO OHARA Study: Bone densitometry was performed. Exam Date: May 24, 2023 Accession number: [id number] Bone Density: Region BMD T-score Z-score Classification AP Spine(L1, L2, L4) 1.545 4.6 6.7 Normal Femoral Neck (Left) 0.834 -0.1 1.6 Normal Total Hip (Left) 1.008 0.5 2.0 Normal Femoral Neck (Right) 0.865 0.1 1.9 Normal Total Hip (Right) 1.010 0.6 2.0 Normal Total Hip Mean 1.009 0.6 2.0 Normal World Health Organization criteria for BMD impression classify patients as: Normal (T-score at or above -1.0), Osteopenia (T-score between -1.0 and -2.5), or Osteoporosis (T-score at or below -2.5). 10-year Fracture Risk: FRAX not reported because: All T-scores for Spine Total, Hip Total, Femoral Neck at or above -1.0 Clinical Information Provided by Patient: Smokes Has used the following medications: Vitamin D Has the following medical conditions: Hysterectomy Patient maximum height was 65 Menopause Age: 44 Drinks caffeinated beverages Onset of menses at age 11 Number of children 2 Impression: The patient has normal bone mass. The patient has risk factors, including: smoking. Discussion: BONE DENSITY IS ABOVE THE MINIMUM DESIRABLE LEVEL AT ALL SKELETAL SITES TESTED. This patient?s bone mineral density is above the minimum desirable level (T-score -1.0 or better) at all sites measured. The patient should follow a healthful lifestyle (good nutrition with adequate calcium and vitamin D, and appropriate weight-bearing exercise). Follow-Up: Consider repeating this study in 5 years or sooner if there is some new clinical indication. Reported by: ANTOINETTE on 05/25/2023 10:21:00 AM. Reviewed, dictated and finalized at location AGisele BAUER
== END 2023-05-24 13:10 | disposition home or self-care (01) ==
PROVIDERS: PCP Internal Medicine; Visit Provider Obstetrics & Gynecology Gynecology
DX: Z78.0 Asymptomatic menopausal state (principal); F17.200 Nicotine dependence, unspecified, uncomplicated
CPT/HCPCS: 77080

== ENCOUNTER 2023-05-25 11:17 | Outpatient (CLI) | payer BC, SELFPAY ==
--- NOTE | ~2023-05-25 | XR_ITS ---
Lumbosacral Spine: AP and lateral views Clinical History: Pain Findings: The normal lordotic curve is maintained. No fracture identified. There is minimal grade 1 r etrolisthesis of L2 over L3. There is severe degenerative spurring at L2-L3, L3-L4, with moderate deg enerative tearing at L4-L5. There is severe facet arthropathy from L3 through S1. The sacroiliac join ts are normally outlined. Impression: Moderate degenerative spondylosis, as above. Minimal grade 1 retrolisthesis of L2 over L3. Reviewed, dictated and finalized at location M. OR NET SOFTWARE ENGINEER Impression: Moderate degenerative spondylosis, as above. Minimal grade 1 retrolisthesis of L2 over L3.
--- NOTE | ~2023-05-25 | XR_ITS ---
AP and lateral views of the bilateral hips Clinical history: Pain Findings: No acute fracture or dislocation is seen. Osseous alignment is anatomic. Bilateral hip and SI joint spaces are preserved. Soft tissues are unremarkable. Impression: No significant abnormality is seen. Reviewed, dictated and finalized at location . CLING TECH Impression: No significant abnormality is seen.
== END 2023-05-25 11:18 | disposition home or self-care (01) ==
LOC: ANHIMG 11:19
PROVIDERS: PCP Internal Medicine; Visit Provider Internal Medicine
DX: M79.605 Pain in left leg (principal); R20.2 Paresthesia of skin; M15.9 Polyosteoarthritis, unspecified; M25.552 Pain in left hip; M25.551 Pain in right hip; M43.06 Spondylolysis, lumbar region
CPT/HCPCS: 72100; 73521

== ENCOUNTER 2023-09-15 08:21 | Outpatient (CLI) | payer BC, SELFPAY ==
--- NOTE | ~2023-09-15 | CT_ITS ---
Clinical Indication: Abdominal pain CT Scan of the Chest, Abdomen, and Pelvis with Contrast: Technique: Contiguous sections were acquired throughout the chest, abdomen, and pelvis after intraven ous administration of 100 cc of Omnipaque 350. Dose reduction technique was used on this scan by magdalena crumping automated exposure control and iterative reconstruction technique. The dose-length product (DL P) was 783.10 mGy-cm. COMPARISON: 06/01/2022 Findings: There is no evidence of any significant mediastinal, hilar or axillary lymphadenopathy. The mediastin al soft tissues and vascular structures appear normal. There is no evidence of pleural or pericardial effusion. The lungs are clear. No pulmonary nodules or infiltrates are noted. The liver, spleen, pancreas, gallbladder, adrenals and kidneys are within normal limits. There are at herosclerotic calcifications of the aorta. No lymphadenopathy. No bowel obstruction or bowel wall thickening. There is no evidence to suggest acute appendicitis. Urinary bladder is unremarkable. No pelvic mass seen. No ascites. Impression: No significant abnormalities seen. Reviewed, dictated and finalized at [facility]. Impression: No significant abnormalities seen.
[2023-09-15 08:46] LABS: Basophils Absolute Auto 0.1 K/mm3 (0.0-0.1); Basophils Percent Auto 0.6 % (0.2-1.2); Eosinophils Absolute Auto 0.1 K/mm3 (0-0.3); Eosinophils Percent Auto 1.3 % (0-4.4); Hematocrit 44.1 % (37.0-47.0); Hemoglobin 15.2 g/dL (12.0-15.0); Immature Granulocyte Absolute 0.02 K/mm3 (0.00-0.031); Immature Granulocyte Percent A 0.2 % (0-0.5); Lymphocytes Absolute Auto 3.02 K/mm3 (0.9-3.2); Lymphocytes Percent Auto 36.6 % (18.3-44.2); Mean Corpuscular HGB Conc 34.5 g/dl (32-36); Mean Corpuscular Hemoglobin 31.9 pg (26-34); Mean Corpuscular Volume 92.6 fl (80-100); Mean Platelet Volume 10.1 fl (7.4-10.4); Monocytes Absolute Auto 0.6 K/mm3 (0.1-0.6); Monocytes Percent Auto 6.8 % (2.6-8.5); Neutrophils Absolute Auto 4.5 K/mm3 (1.3-6.7); Neutrophils Percent Auto 54.5 % (45.5-73.1); Platelet Count Result 278 k/mm3 (150-375); Red Blood Count 4.76 M/mm3 (4.2-5.4); Red Cell Distribution Width 11.7 % (11.5-14.5); White Blood Count 8.3 K/mm3 (4.5-10.0)
[2023-09-15 08:57] LABS: Anion Gap 12 mmol/L (4-12); Blood Urea Nitrogen 29 mg/dL (7-17); Calcium 10.2 mg/dL (8.4-10.2); Carbon Dioxide 23 mmol/L (22-30); Chloride 104 mmol/L (98-107); Estimated Glomerular Filt Rate 37; Glucose 118 mg/dL (65-110); Potassium 3.8 mmol/L (3.4-5.0); Sodium 139 mmol/L (137-145)
[2023-09-15 09:07] LABS: Color Urine Yellow (Yellow)
[2023-09-15 09:08] LABS: Appearance Urine Sl Cloudy (Clear); Bilirubin Urine 1+ (Negative); Blood Urine Negative (Negative); Glucose Urine UA Negative (Negative); Ketones Urine Trace mg/dL (Negative); Nitrate Urine Negative (Negative); Protein Urine 2+ (Negative); Specific Grav Ur 1.025 (1.010-1.020); Urobilinogen Urine 0.2 mg/dL (0.2-1.0)
[2023-09-15 09:09] LABS: Add Urine Microscopic? YES; Leukocyte Esterase Ur Negative LEU/UL (Negative)
[2023-09-15 09:17] LABS: Bacteria Urine 3+ /hpf; Hyaline Casts Urine 0-2 /lpf
[2023-09-15 09:18] LABS: RBC Urine 0-2 /hpf (0-2); Squamous Epithelial Cell Urine Moderate /hpf (Few); WBC Urine 0-3 /hpf (0-3)
== END 2023-09-15 08:22 | disposition home or self-care (01) ==
PROVIDERS: PCP Internal Medicine; Visit Provider Internal Medicine
DX: R10.9 Unspecified abdominal pain (principal); R19.00 Intra-abdominal and pelvic swelling, mass and lump, unspecified site; E86.0 Dehydration; N20.0 Calculus of kidney; I10 Essential (primary) hypertension
CPT/HCPCS: 36415; 71260; 74177; 80048; 81001; 85025; Q9967

== ENCOUNTER 2024-06-14 08:50 | Outpatient (CLI) | payer BC, SELFPAY ==
--- NOTE | ~2024-06-14 | MM_ITS ---
EXAMINATION: MM scrn verónica implant BI w aroldo HISTORY: Screening mammogram TECHNIQUE: Craniocaudal and mediolateral oblique 3-D tomosynthesis images with implant displacement a nd synthetic 2-D images were generated. Craniocaudal and mediolateral oblique views of the breasts wi thout implant displacement were obtained using full field digital mammography. CAD analysis was submi tted and interpreted. COMPARISON: 04/13/2023, 02/10/2022, 12/29/2020 BREAST PARENCHYMAL COMPOSITION: The breasts are extremely dense, which lowers the sensitivity of mamm ography. FINDINGS: There is no evidence of suspicious mass, calcification, or architectural distortion to sugg est malignancy in either breast. There has been no suspicious interval change. IMPRESSION: No mammographic evidence of malignancy. Recommend routine screening mammography in one year. BI-RADS Category 1: Negative Reviewed, dictated and finalized at [facility].
--- OUTSIDE RECORDS SUMMARY | 2024-06-14 09:38 | XMS_ITS | Clinical Summary ---
Author Organization [facility] Address [address] [address] Care Team Providers Care Folder Machine Adjuster Name Role Phone Unavailable Primary Care Provider Unavailabl e Source Comments [facility],non-owned Affiliates and Associated Physician Practices is amultiple site organization consisting of ambulatory clinics and hospital sitesin [place], [place], [place] and [place]. This disclosure is being madepursuant to the Care Everywhere program and may not contain all information available regarding this patient. Last updated 17.[facility] [employer] Social History Tobacco Use Types Packs/Day Years Used Date Smoking Tobacco: Never Assessed Sex and Gender Information Value Date Recorded Sex Assigned at Not on file Gender Identity Not on file Sexual Orientation Not on file Plan of Treatment Health Maintenance Due Date Last Done Comments BONE DENSITY TESTING 1955 COLOGUARD (AGES 45-75) - COL ON CA SCREENING 1955 COLON MONITORING 1955 COLONOSCOPY - COLON CA SCREENING 1955 CT COLONOGRAPHY - COLON CA SCREENING 1955 Colorectal Cancer Screening 1955 FIT - COLON CA SCREENING 1955 FLEX SIG - COLON CA SCREENING 1955 LIPID TESTING 1955 MAMMOGRAM 1955 HEPATITIS C SCREENING 06/29/1972 DTAP/TDAP/TD VACCINES (1 - Tdap) 1973 PNEUMOCOCCAL VACCINE 50+ (1 of 1 - PCV) 2004 ZOSTER VACCINE (1 of 2) 2004 COVID-19 VACCINE ( - 2023-2 5 season) 2023 INFLUENZA VACCINE (#1) 2023 DEPRESSION SCREENING 04/04/2024 Respiratory Syncytial Virus (RSV) Vaccine Pt: or over 60 yrs (1 - 1-dose 75+ series) 2029 HEPATITIS B VACCINE Aged Out No longe r eligible based on patient's age to complete this topic HIB VACCINE Aged Out No longer eligi ble based on patient's age to complete this topic HPV VACCINE Aged Out No longer eligi ble based on patient's age to complete this topic MENINGOCOCCAL (Group B) VACC INE SHARED DECISION-MAKING Aged Out No longer eligibl e based on patient's age to complete this topic MENINGOCOCCAL GROUPS A/C/Y/W VACCINE Aged Out No longer eligible b ased on patient's age to complete this topic
--- OUTSIDE RECORDS SUMMARY | 2024-06-14 09:38 | XMS_ITS | Referral Summary ---
Author Organization [facility] Address [address] [place] [address] Care Team Providers Care Concrete Mixer Operator Helper Name Role Phone Unavailable Primary Care Provider Unavailabl e Source Comments [facility],non-owned Affiliates and Associated Physician Practices is amultiple site organization consisting of ambulatory clinics and hospital sitesin [place], [place], [place] and [place]. This disclosure is being madepursuant to the Care Everywhere program and may not contain all information available regarding this patient. Last updated 17.[facility] Social History Tobacco Use Types Packs/Day Years Used Date Smoking Tobacco: Never Assessed Sex and Gender Information Value Date Recorded Sex Assigned at Not on file Gender Identity Not on file Sexual Orientation Not on file Plan of Treatment Not on file
--- OUTSIDE RECORDS SUMMARY | 2024-06-14 09:38 | XMS_ITS | Continuity of Care Document ---
Author Organization [facility] Address [address] [place] [address] [place] [address] Phone Care Team Providers Care Manager Highway Name Role Phone [facility] Unavailable Unavail able Procedures Procedure Date Corneal Topography Advance Directives Directive Yes / No Effective Date File Name No Information Encounters Encounter Description Practice Location Reason(s) For Visit Diagnoses Date Provider Providers Copied on Encounter [facility], [address] [place] [address] [address], [place], [place], [id number], tel:[phone] [facility] No Information [address] [facility] [address] [facility] [address] [place], [place], [id number] , . tel: [phone] Referring Provider: Jed Marroquin MD , [address] [place], [address]. tel:[phone] Family History Family Member Type Diagnosis Age At Onset No Information Payers Payer name Insurance type Covered green party ID Authoriza tion(s) No Information Social [...]
--- OUTSIDE RECORDS SUMMARY | 2024-06-14 09:38 | XMS_ITS | Patient Health Summary ---
Author Organization [facility] Address [address] [place] [address] Care Team Providers Care Developmental Behavioral Physician Name Role Phone Unavailable Primary Care Provider Unavailabl e Note from [facility],non-owned Affiliates and Associated Physician Practices is amultiple site organization consisting of ambulatory clinics and hospital sitesin [place], [place], [place] and [place]. This disclosure is being madepursuant to the Care Everywhere program and may not contain all information available regarding this patient. Last updated 17.[facility] Social History Tobacco Use Types Packs/Day Years Used Date Smoking Tobacco: Never Assessed Sex and Gender Information Value Date Recorded Sex Assigned at Not on file Gender Identity Not on file Sexual Orientation Not on file Procedures * DERMATOPATHOLOGY(Performed 08/05/2021) * DERMPATH SLIDE CONSULT(Performed 04/29/2021) Results * DERMATOPATHOLOGY (08/05/2021 12:00 AM CDT) Case Report Dermatopathology Report Case: [id number] Authorizing Provider: Miri Gamble MD Collected: 08/05/2021 12:00 AM Ordering Location: [facility] DermPath Lab Received: 08/06/2021 10:51 AM Pathologist: Tyrese Vasquez MD Specimens: A) - Skin, left index B) - Skin, left wrist 2 4:07 PM CDT DERMATOPATHOLOGY LABORATORY Final Diagnosis Specimen A. 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 SKIN, left wrist: FOREIGN BODY REACTION TO A SPLINTER (L92.3) (see microscopic description and comment) 2 4:07 PM CDT DERMATOPATHOLOGY LABORATORY Clinical History A: Parrott fungal plaque, GA, sarcoid, deep fungal. B: Parrott eroded papule R/O BCC/sarcoid/GA/deric antonio. 2 4:07 PM [facility] DERMATOPATHOLOGY LABORATORY Gross Description Specimen A: Received is one formalin filled container labeled with the patient's name and designated left index. The specimen consists of a shave biopsy measuring 4f4o9ls. Jar 0. Specimen B: Received is one formalin filled container labeled with the patient's name and designated left wrist. The specimen consists of a shave biopsy measuring 4a5w9tn. Jar 0. 2 4:07 PM [facility] DERMATOPATHOLOGY LABORATORY Microscopic Description Specimen A. SKIN, left index: There are lymphocytes around blood vessels and histiocytes between collagen bundles some of which are arranged in a palisade. The collagen is focally altered. Grocott's methenamine silver (GMS) stain is negative for fungal elements in the sections examined. Kiana stain is negative for fungal elements in the sections examined. Colloidal iron is focally increased. 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 However, if there is concern for an infectious process consideration should be given to submitting tissue for culture. Specimen B. SKIN, left wrist: A vertical column of cellulose is associated with granulation tissue, granulomatous inflammation, and foreign body giant cells. Grocott's methenamine silver (GMS) stain highlights fungal forms within the splinter but not in the tissue. Kiana stain is negative for fungal elements in the sections examined. COMMENT: No fungal elements are seen in the tissue. 2 4:07 PM [facility] DERMATOPATHOLOGY LABORATORY Disclaimer An external and internal positive and negative controls are appropriate for the histochemical, immunohistochemical and immunofluorescence stain(s) in this case (if any), except where stated explicitly. The performance characteristics of the stain(s) cited in this report were developed and its performance characteristic determined by the Dermatopathology Laboratory at [facility], directed by Dr. Parmjit Vasquez. These tests need not be, and therefore are not, approved by the [place] Food and Drug Administration. The tests are used for clinical purposes. Billing Codes Specimen Charges Stain Charges 45206 33505 1 1 49657 99978 17308 06961 67652 1 1 1 1 1 2 4:07 PM CDT DERMATOPATHOLOGY LABORATORY Embedded Images 2 4:07 PM CDT DERMATOPATHOLOGY LABORATORY Pathology/Cytology TISSUE SPECIMEN FROM SKIN / Unknown 08/05/2021 08/06/2021 10:51 AM CDT Miscellaneous samples (specimen) TISSUE SPECIMEN FROM SKIN / Unknown 08/05/2021 08/06/2021 10:51 AM CDT Miri Gamble MD LAB - PATHOLOGY/CYTO LOGY ORDERABLES DERMATOPATHOLOGY LABORATORY [facility] - Department of Dermatology [address], [address] [phone] * DERMPATH SLIDE CONSULT (04/29/2021 12:00 AM [facility]) Case Report Dermatopathology Report Case: [id number] Authorizing Provider: Jed Villa MD Collected: 04/29/2021 12:00 AM Ordering Location: [facility] DermPath Lab Received: 04/29/2021 09:04 AM Pathologist: Jenni Stover MD Specimen: Slide(s), Left index finger, [id number]# [id number] 2 5:59 PM [facility] DERMATOPATHOLOGY LABORATORY Final Diagnosis Specimen A. 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 Jed Villa, a consult will be performed on 18 (H&E, Lissette A, ER, GATA3, CD68, P63, HMB45, MCK, CK7, CK5) slide(s) labeled [id number]. DF. All slides returned. Any additional sections, special stains or immunohistochemical stains performed by our laboratory will be kept here on file. 2 5:59 PM [facility] DERMATOPATHOLOGY LABORATORY Microscopic Description Specimen A. Slide(s), Left index finger, OSC# [id number]: Sections show an unremarkable epidermis. In the dermis there is an inflammatory infiltrate including epithelioid histiocytes arranged in vaguely palisaded granulomas and sparse lymphocytes. There is central elastophagocytosis. Birefringent material is not observed when the specimen is examined under polarized light. The provided immunohistochemical stains were reviewed. CD68 highlights the histiocytes. The infiltrate is negative for staining with Melan-A/[place]-1, ER, GATA3, HMB45, p63, MCK, Ck7 and Ck5. After the hematoxylin and eosin stain is reviewed; additional stains were performed at [facility] dermatopathology to assess for infectious etiology and further diagnosis. Grocott's methenamine silver (GMS), Tissue Gram and Kiana stains fail to highlight fungal or bacterial elements in the available sections. Colloidal iron is not increased in the infiltrate. COMMENT: The histological differential diagnosis includes annular elastolytic giant cell granuloma, favored given the elastophagocytosis, granuloma annulare and cutaneous sarcoidosis. Clinical correlation is recommended. 2 5:59 PM [facility] DERMATOPATHOLOGY LABORATORY Disclaimer An external and internal positive and negative controls are appropriate for the histochemical, immunohistochemical and immunofluorescence stain(s) in this case (if any), except where stated explicitly. The performance characteristics of the stain(s) cited in this report were developed and its performance characteristic determined by the Dermatopathology Laboratory at [facility], directed by Dr. Parmjit Vasquez. These tests need not be, and therefore are not, approved by the [place] Food and Drug Administration. The tests are used for clinical purposes. Billing Codes Specimen Charges Stain Charges 70536 1 01615 25815 11171 59750 1 1 1 1 2 5:59 PM [facility] DERMATOPATHOLOGY LABORATORY Embedded Images 2 5:59 PM [facility] DERMATOPATHOLOGY LABORATORY Pathology/Cytolog y SLIDE / Unknown 04/29/2021 04/29/2021 9:04 AM [facility] Jed Villa MD LAB - PATHOLOGY/CYTO LOGY ORDERABLES DERMATOPATHOLOGY LABORATORY [facility] - Department of Dermatology [address] [place] [address], [facility] [phone]
--- OUTSIDE RECORDS SUMMARY | 2024-06-14 09:39 | XMS_ITS | Clinical Summary ---
Author Organization [facility] Address [address] [place] [address] Care Team Providers Care Sand Temperer Name Role Phone Maurice Rousseau MD Primary Care Provider [phone] Allergies Active Allergy Reactions Criticality Noted Date Comments Cefadroxil Other (See comments) Low Reaction: OTHER, Reaction: Other Morphine Other (See comments) Reaction: OTHER;, Medications traMADol (ULTRAM) 50 mg tablet Take 50 mg by mouth every 6 (six) hours Active ibuprofen (ADVIL,MOTRIN) 800 mg tablet Take 800 mg by mouth every 6 (six) hours as needed for pain Active rosuvastatin calcium (CRESTOR ORAL) Take by mouth Active LISINOPRIL ORAL Take by mouth Active estrogen,brendan/m e-testosterone (ESTROGENS-METHY LTESTOSTERONE ORAL) Take by mouth Active levothyroxine sodium (SYNTHROID ORAL) Take by mouth Active acyclovir (ZOVIRAX) 400 mg tablet TK 1 T PO BID 12/06/2019 Active ezetimibe (ZETIA) 10 mg tablet Take 10 mg by mouth daily Active Active Problems No known active problems Surgical History Surgery Date Site/Laterality Comments KNEE SURGERY 04/04/2013 - 04/03/2014 Left KNEE SURGERY 04/04/2006 - 04/03/2007 Right BOWEL RESECTION 04/04/1999 - 04/03/2000 Medical History Medical History Date Comments Anxiety Arthritis Heart murmur Hypercholesteremia Hypertension Thyroid disease Family History Medical History Relation Name Comments Diabetes Father Heart disease Father Hypertension Father Kidney disease Father Arthritis Mother Cancer Mother Clotting disorder Mother Relation Name Status Comments Father Mother Social History Tobacco Use Types Packs/Day Years Used Date Smoking Tobacco: Some Days Smokeless Tobacco: Never Alcohol Use Standard Drinks/Week Comments Yes 0 (1 standard drink = 0.6 oz pur e alcohol) FREQUENTLY Personal Safety Answer Date Recorded Getting School Help Needed Not on file 06/17 Comments Unknown Sex and Gender Information Value Date Recorded Sex Assigned at Not on file 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 Gender Identity Not on file Sexual Orientation Not on file 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 Not on file Not on file Obstetrics History Last Filed Vital Signs Vital Sign Reading Time Taken Comments Blood Pressure 135/76 12/24/2019 2:01 PM CDT Pulse 99 12/24/2019 2:01 PM CDT Temperature 36.6 C (97.9 F) 12/24/2019 2:01 PM CDT Respiratory Rate 18 12/24/2019 2:01 PM CDT Oxygen Saturation 95% 12/24/2019 2:01 PM CDT Inhaled Oxygen Concentration - - Weight 86.2 kg (190 lb) 12/24/2019 2:01 PM CDT Height 167.6 cm (5' 6 ) 12/24/2019 2:01 PM CDT Body Mass Index 30.67 12/24/2019 2:01 PM CDT Plan of Treatment Not on file Insurance [facility] Member Subscriber Plan / Payer (Ef fective 2018-Present) Name:Eva Goodman Relation to Subscriber:Spouse Name:JIMY GOODMAN Date of :1954 (Home) Address: [address] [place] [address] Payer ID:[id number] (NAIC) Type: YANI Address: [facility] [id number] MEDICARE [employer] [place] MEDICARE Care Teams Sand Temperer Relationship Specialty Start Date End Date Maurice Rousseau MD [address] [place] [address] PCP - General Internal Medicine 09/25/18
--- OUTSIDE RECORDS SUMMARY | 2024-06-14 09:39 | XMS_ITS | Encounter Summary ---
Author Organization [facility] Address 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
--- OUTSIDE RECORDS SUMMARY | 2024-06-14 09:39 | XMS_ITS | Encounter Summary ---
Author Organization [facility] Address [address] [place] [address] Care Team Providers Care Sole Dyer Name Role Phone Unavailable Primary Care Provider Unavailabl e Encounter Details Date Type Department Care Team (Late st Contact Info) Description 04/29/2021 Lab Requisition [facility] DermPath Lab [address] [id number] Jed Villa MD [address] [address] Social History Tobacco Use Types Packs/Day Years Used Date Smoking Tobacco: Never Assessed Sex and Gender Information Value Date Recorded Sex Assigned at Not on file Gender Identity Not on file Sexual Orientation Not on file documented as of this encounter Plan of Treatment Not on file documented as of this encounter Procedures Procedure Name Priority Date/Time Associated Diagnosis Comments DERMPATH SLIDE CONSULT Routine 04/29/2021 12:00 AM EVP GENERAL COUNSEL documented in this encounter Results * DERMPATH SLIDE CONSULT (04/29/2021 12:00 AM [facility] GENERAL COUNSEL) Case Report Dermatopathology Report Case: [id number] Authorizing Provider: Jed Villa MD Collected: 04/29/2021 12:00 AM Ordering Location: [facility] DermPath Lab Received: 04/29/2021 09:04 AM Pathologist: Jenni Stover MD Specimen: Slide(s), Left index finger, OSC# [id number] 2 5:59 PM [facility] GENER[facility] COUNSEL DERMATOPATHOLOGY LABORATORY Final Diagnosis Specimen A. 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 Jed Villa, a consult will be performed on 18 (H&E, Lissette A, ER, GATA3, CD68, P63, HMB45, MCK, CK7, CK5) slide(s) labeled [id number]. DF. All slides returned. Any additional sections, special stains or immunohistochemical stains performed by our laboratory will be kept here on file. 5:59 PM [facility] DERMATOPATHOLOGY LABORATORY Microscopic Description Specimen A. Slide(s), Left index finger, OSC# [id number]: Sections show an unremarkable epidermis. In the dermis there is an inflammatory infiltrate including epithelioid histiocytes arranged in vaguely palisaded granulomas and sparse lymphocytes. There is central elastophagocytosis. Birefringent material is not observed when the specimen is examined under polarized light. The provided immunohistochemical stains were reviewed. CD68 highlights the histiocytes. The infiltrate is negative for staining with Melan-A/[place]-1, ER, GATA3, HMB45, p63, MCK, Ck7 and Ck5. After the hematoxylin and eosin stain is reviewed; additional stains were performed at [facility] dermatopathology to assess for infectious etiology [...] Clinical correlation is recommended. 2 5:59 PM [facility] DERMATOPATHOLOGY LABORATORY Disclaimer An external and internal positive and negative controls are appropriate for the histochemical, immunohistochemical and immunofluorescence stain(s) in this case (if any), except where stated explicitly. The performance characteristics of the stain(s) cited in this report were developed and its performance characteristic determined by the Dermatopathology Laboratory at [facility], directed by Dr. Parmjit Vasquez. These tests need not be, and therefore are not, approved by the [place] Food and Drug Administration. The tests are used for clinical purposes. Billing Codes Specimen Charges Stain Charges 82943 1 12369 26924 25511 50853 1 1 1 1 2 5:59 PM [facility] GENERAL COUNSEL DERMATOPATHOLOGY LABORATORY Embedded Images 2 5:59 PM [facility] GENER[facility]SEL DERMATOPATHOLOGY LABORATORY Pathology/Cytolog y SLIDE / Unknown 04/29/2021 04/29/2021 9:04 AM EVP GENERAL COUNSEL Jed Villa MD LAB - PATHOLOGY/CYTO LOGY ORDERABLES DERMATOPATHOLOGY LABORATORY [facility] - Department of Dermatology [facility] Medicine [address] [place] [address], [address] [phone] documented in this encounter Visit Diagnoses Not on filedocumented in this encounter
--- OUTSIDE RECORDS SUMMARY | 2024-06-14 09:39 | XMS_ITS | Referral Summary ---
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
--- OUTSIDE RECORDS SUMMARY | 2024-06-14 09:39 | XMS_ITS | Clinical Summary ---
Author Organization [facility] Address [address] 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
== END 2024-06-14 08:51 | disposition home or self-care (01) ==
PROVIDERS: PCP Internal Medicine; Visit Provider Obstetrics & Gynecology Gynecology
DX: Z12.31 Encounter for screening mammogram for malignant neoplasm of breast (principal); Z98.82 Breast implant status
CPT/HCPCS: 77063; 77067

== ENCOUNTER 2024-12-13 06:10 | Day surgery (SDC) | payer OTHER, SELFPAY ==
[2024-11-28 09:05] VITALS: BMI 29.0
[2024-12-13] VITALS (8 sets, daily range): BP systolic 121–142; BP diastolic 60–81; PULSE 61–79; RESP 12–18; TEMP 36.2–37.2; O2SAT 94–100
[2024-12-13] MEDS: LACTATED RINGERS 1,000 ML 30 ML IV CONT ×2 (06:41→12:34)
[2024-12-13] MEDS: TRANEXAMIC ACID 1,000 MG/10 ML AMPUL 1000 MG IV PUSH (07:01)
--- NOTE | 2024-12-13 07:19 | P.PNAN_ITS ---
Anes - Initial Pre Proc Eval Procedure: Operation Date: 12/13/24 07:30 Proposed Procedures p Bilateral Breast Implant Exchange - Ashish Mendosa MD s Bilateral Breast Mastopexy - Ashish Mendosa MD Date/Time: 12/13/24 07:19 Surgeon: Ashish Mendosa MD Pre Op Diagnosis: History of Breast Augmentation, Breast Ptosis Patient Data Age: 69 Gender: F Height: 1.65 m Weight: 77.1 kg Last Vital Signs Temp 37.2 C 12/13/24 06:34 Pulse 79 12/13/24 06:34 Resp 16 12/13/24 06:34 BP 141/81 H 12/13/24 06:34 Pulse Ox 99 12/13/24 06:34 O2 Del Method Room Air 12/13/24 06:34 Allergies Allergy/AdvReac Type Severity Reaction Status Date / Time Sulfa (Sulfonamide Allergy Mild rash Verified 12/13/24 06:32 Antibiotics) cefadroxil Allergy Unknown Swelling Verified 12/13/24 06:32 Cephalosporins Allergy Unknown Unknown Verified 12/13/24 06:32 Penicillins Allergy Unknown Unknown Verified 12/13/24 06:32 morphine AdvReac Mild Nausea Verified 12/13/24 06:32 Home Medications ?Medication ?Instructions ?Recorded ?Confirmed ?Type estradiol 0.5 mg tablet 1 mg PO DAILY 02/20/2112/13 History ezetimibe 10 mg tablet (Zetia) 10 mg PO DAILY #90 tabs 04/06/24 12/13/24 Rx lisinopril 20 0.5 tablet PO DAILY #90 tabs 05/04/24 12/13/24 Rx mg-hydrochlorothiazide 12.5 mg tablet tirzepatide (weight loss) 10 10 mg (0.5 mL) subcut WEE KLY #2 mL 11/01/24 11/28/24 Rx mg/0.5 mL subcutaneous solution (Zepbound) Held on 11/28/24. Instructions: for surgery hold levothyroxine 125 mcg tablet 125 mcg PO DAILY #90 tabs 11/07/24 12/13/24 Rx rosuvastatin 40 mg tablet 40 mg PO DAILY #90 tabs 09/2612/13/24 Rx alprazolam 0.25 mg tablet 0.25 mg PO TID PRN anxiety # 180 11/13/24 12/13/24 Rx tabs ibuprofen 800 mg tablet 800 mg PO TID PRN pain #270 tabs 11/13/24 12/13/24 Rx tramadol 50 mg tablet 50 mg PO Q4-6H PRN pain #100 tabs 11/13/24 12/13/24 Rx bupropion HCl 150 mg 24 hr tablet, 150 mg PO QAM #90 t abs 11/20/24 12/13/24 Rx extended release (Wellbutrin XL) Patient hx anesthesia problems: post op nausea/vomiting Family hx anesthesia problems: none Results Review: All pre-operative results and documents have been reviewed as part of the pre- operative evaluation. [facility] Past Medical History Medical History Breast cancer screening Lesion of cornea BMI 28.0-28.9,adult Right flank mass Right flank pain Encounter for routine adult health examination without abnormal findings Syncope Degenerative joint disease BMI 31.0-31.9,adult Cutaneous sarcoidosis Skin lesion Vitamin D deficiency Prediabetes Chronic pain Surgical History Surgical History History of total abdominal hysterectomy and bilateral salpingo-oophorectomy History of abdominoplasty History of bilateral knee replacement History of bowel resection Family History Family History Other Cerebrovascular accident Diabetes mellitus Heart disease Hypertension Social History Social History Social History: Surrogate medical decision maker: Grayson Goodman, spouse. Code status: Full code. Years smoked: 40 Smoking status: Never smoker Tobacco type: cigarettes Second hand tobacco smoke exposure: Yes Additional smoking assessment comments: PT STATES SHE ONLY SMOKES AN OCCASIONAL CIGARETTE EVERY 3-4 MONTHS Alcohol intake: never Substance use: never Substance use type: does not use Lack of Transportation: No Lack of Food: Never True Current Housing: I Have Housing Concerned About Future Housing: No Difficulty Paying Gas/Electric Bills: No Difficulty Paying for Meds: No Currently Unemployed: No Education: Don't Know Difficulty w/ Childcare or Family Care: No Living arrangements: with family Additional living arrangements comments: Lives with spouse in [place]. 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 Spiritual care concerns: No Anes - Eval Final PreProcedure Day of Procedure 12/13/24 07:19 Patient weight: normal Heart: regular rate and rhythm Lungs: clear to auscultation Airway: Mallampati scale class II Neurological: alert and oriented Last oral intake: >/= 8 hours ASA classification: II Emergent: no Anesthetic plan: proceed Anesthesia type and monitoring: general Results Review: All pre-operative results and documents have been reviewed as part of the pre- operative evaluation. Informed Consent: The patient's anesthetic plan and its attendant risks and benefits were discussed with the patient/family/POA. Questions were solicited and answers provided to the satisfaction of the patient/family/POA.
--- NOTE | 2024-12-13 07:55 | WPDHPUPDATE1 ---
History and Physical Update Update Date/Time: 12/13/24 07:55 History and Physical has been reviewed, including an updated exam of the patient. There are NO changes in the patient's condition. Risks, benefits, and alternatives have been discussed and questions answered. Patient agrees to proceed with procedure.
--- NOTE | 2024-12-13 07:55 | W.PM.PROC2 ---
Procedure Note - Detailed Date of Procedure 12/13/24 Pre-op Diagnosis History of Breast Augmentation, Breast Ptosis Post-op Diagnosis Same Procedure Performed 1. Bilateral breast implant exchange 2. Bilateral mastopexy Surgeon Ashish Mendosa MD Anesthesia General Findings Previous implants: Bilateral 400cc silicone ruptured (right extracapsular) Estimated base 13.5 New implants: Right: REF# [id number] SN [id number] Left: REF# [id number] SN [id number] Description of Procedure She is here today for the above. Previously and again today the risks, benefits, alternatives were discussed in extensive detail. I wanted her to be very realistic about the risks involved as well as expectations. We discussed aftercare and what to monitor for. Discussed the complexity of her procedure as well as rates of revision to make sure her and her were well informed. She stated she wanted to decrease implant volume 25-30% (approx) Made sure answered all of her questions to her satisfaction today and consent was obtained. Marked in the preoperative holding area with their verification. The patient was taken to the operating room placed supine on the operating table. Anesthesia was provided by anesthesiology. A surgical time-out was taken. She was prepped and draped in a standard sterile fashion. Tumescent was utilized laterally to provide field block Tegaderm nipple Contreras were placed. A 15 blade used to make an incision just superior to the inframammary fold leaving a cusp of de-epithelized tissue at the t junction. Dissection was continued until the chest wall as identified. The capsules were identified and I elevated excising the entire capsules bilateral. Implant and capsules removed. Verified strict hemostasis. I copiously irrigated with saline solution on TUR tubing (3 liters). Laterally secured the lateral breast with 2-0 Quill PDO suture bilateral. Next the use a triple antibiotic and Betadine containing solution to irrigate the pocket. I washed my gloves with the triple antibiotic and Betadine solution. We washed the implant immediately upon opening it with this solution and only opened it when we needed it. I used implant funnel and no-touch technique. The implant was introduced into the pocket using the funnel. Having verified positioning of the implant this was closed using 2-0 PDS. I tailor tacked the breast into position. Placed her in a sitting position. Verified the nipple-areolar location based on preoperative planning as well as intraoperative observations and measurements in full agreement. Suction lipectomy was completed laterally with a 4mm kishor cannula. This was based on preoperative planning, intraoperative observation, and rolling pinch which was in full agreement. She was placed supine. I de-epithelialized the pedicle. I then removed the inferior central portion of the breast need making sure the implant was well protected. I elevated medial and lateral tissue flaps as well for planned closure. Secured the IMF with 2-0 PDS. I closed along the IMF with 2-0 PDS. Along the vertical with 2-0 PDS. I closed around the areola and the vertical incision with 3-0 Monocryl. 3-0 Stratafix along the IMF. I finally closed everything with running subcuticular 4-0 Monocryl and tissue glue. Fluffs and surgical bra were placed. Estimated Blood Loss 50 Drains No Packing No Pathology Yes (Bilateral capsules) Complications No immediate complications Condition Stable Disposition PACU
[2024-12-13] MEDS: ceFAZolin SODIUM 2 GM/20 ML SW SYRINGE IV PUSH (08:32)
[2024-12-13] MEDS: fentaNYL CITRATE INJ (*CRX) 100 MCG/2 ML VIAL 25 MCG IV PUSH ×5 (12:54→13:16)
== END 2024-12-13 14:24 | disposition home or self-care (01) ==
PROVIDERS: Visit Provider Surgery Plastic and Reconstructive Surgery
PROC: (CPT 19371; principal; 2024-12-13 07:30)
PROC: (CPT 19316; 2024-12-13 07:30)
DX: T85.41XA Breakdown (mechanical) of breast prosthesis and implant, initial encounter (principal); N64.81 Ptosis of breast; Y83.8 Other surgical procedures as the cause of abnormal reaction of the patient, or of later complication, without mention of misadventure at the time of the procedure
CPT/HCPCS: 19371; 19325; 19316; 15877

== ENCOUNTER 2024-12-13 08:07 | Outpatient (NON) | payer BC, SELFPAY ==
--- OUTSIDE RECORDS SUMMARY | 2007-12-28 03:30 | XMS_ITS | Continuity of Care Document ---
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 [place] [address] [place], [place], [id number] , . tel: [phone] Referring Provider: Jed Marroquin MD , [address] [facility] [place], [address]. tel:[phone] Family History Family Member Type Diagnosis Age At Onset No Information Payers Payer name Insurance type Covered alliance party ID Authoriza tion(s) No Information Social History Type Description Quantity Date Captured Comments Sex Female Smoking Status No Information Chief Complaint And Reason For Visit No Information Reason For Referral Reason For Referral No Information History Of Present Illness Encounter Date Complaint History Of Prese nt Illness No Information Functional Status Date Functional Assessmen t No Information Instructions Date Instruction Additional Infor mation No Information Assessments Type Assessment Date No Information Patient Care Teams Name Effective Dates (start - stop) Status Members No Information
--- NOTE | 2024-12-13 | S_PTH ---
PATIENT: Eva Goodman LOC: [facility]#:[id number] AGE/SX: 69/F ROOM: RE12/13/[address]: Ashish Mendosa MD : 1955 BED: DIS: 12/13/2024 SPEC #: [id number] RECD: 12/14/24 08:40 STATUS: KALPESH REQ #: [id number] JESUS: 12/13/24 00:[address]: Ashish Mendosa DEPT: [facility] Surgical RECD BY: Lashon Silveira ENTERED: 12/14/24 08:41 SP TYPE: Surgical OTHR DR: UNKNOWN,DOCTOR Tissues: A - Breast Capsule B - Breast Capsule Procedures: Hematoxylin and Eosin Stain Gross and Microscopic Level 3
--- OUTSIDE RECORDS SUMMARY | 2024-12-14 08:12 | XMS_ITS | Encounter Summary ---
Author Organization [facility] Address 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
--- OUTSIDE RECORDS SUMMARY | 2024-12-14 08:12 | XMS_ITS | Clinical Summary ---
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 Gender Identity Not on file Sexual Orientation Not on file Plan of Treatment Health Maintenance Due Date Last Done Comments DTAP/TDAP/TD VACCINES (1 - Tdap) 1973 COLORECTAL SCREENING 07/05/1999 Colorectal Cancer Screening 07/05/1999 FIT-DNA Q 3 years 07/05/1999 FIT/FOBT Q 1 year 07/05/1999 Flex Sig/CT Colonography Q 5 years 07/05/1999 PNEUMOCOCCAL VACCINE 50+ YEA RS (1 of 1 - PCV) 2004 ZOSTER VACCINE (1 of 2) 2004 BREAST CANCER SCREENING 04/28/2017 04/28/19 17, 04/28/2016, 10/02/2014, Additional history exists OSTEOPOROSIS SCREENING 07/05/2019 INFLUENZA VACCINE (#1) 2024 RSV VACCINE (60+ or ) (1 - 1-dose 75+ series) 2029
--- OUTSIDE RECORDS SUMMARY | 2024-12-14 08:12 | XMS_ITS | Clinical Summary ---
Author Organization [facility] Address [address] [place] [id number] Care Team Providers Care Scissors Grinder Name Role Phone Maurice Rousseau MD Primary Care Provider [phone] Allergies Active Allergy Reactions Criticality Noted Date [...] Active Active Problems No known active problems Encounters Date Type Department Care Team Description 10/01/2024 7:52 PM CDT - 10/01/2024 10:12 PM CDT Emergency [facility] Emergency Department [address] [place] [address] Paulie Fierro MD PhD Left lower quadrant abdominal pain (Primary Dx); Left buttock pain Discharge Disposition: Discharge to home or self care from Last 3 Months Surgical History Surgery Date Site/Laterality Comments KNEE [...] alcohol) FREQUENTLY Personal Safety Answer Date Recorded Have you ever been in or are you currently in a harmful physical or emotional relationship or is someone making you feel afraid or unsafe? 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 Not on file Not on file Obstetrics History Last Filed Vital Signs Vital Sign Reading Time Taken Comments Blood Pressure 144/80 10/01/2024 9:55 PM CDT Pulse 79 10/01/2024 10:05 PM CDT Temperature 36.8 C (98.3 F) 10/01/2024 10:05 PM CDT Respiratory Rate 18 10/01/2024 10:05 PM CDT Oxygen Saturation 99% 10/01/2024 7:00 PM CDT Inhaled Oxygen Concentration - - Weight 79.4 kg (175 lb) 10/01/2024 7:00 PM CDT Height 162.6 cm (5' 4) 10/01/2024 7:00 PM CDT Body Mass Index 30.04 10/01/2024 7:00 PM CDT Plan of Treatment Health Maintenance Due Date Last Done Comments Breast Cancer Screening-Mammogram 1954 Colon Cancer Screening-Colonoscopy 1954 Depression Screening 1954 Fall Risk Assessment 1954 Hepatitis C Screening 1954 Osteoporosis Screening-Bone Density Scan 1954 Hepatitis B Screening 1972 Pneumococcal vaccine 65+ (1 of 2 - PCV) 1973 Zoster Vaccine (1 of 2) 2004 DTaP/Tdap/Td Vaccine (1 - Tdap) 10/13/2013 4 Well Visit 65+ 07/05/2019 Influenza Vaccine (#1) 2024 Procedures Procedure Name Priority Date/Time Associated Diagnosis Comments CT ABDOMEN PELVIS W CONTRAST ED 10/01/2024 8:38 PM CDT URINALYSIS AND REFLEX TO MICROSCOPIC AND CULTURE STAT 10/01/2024 7:55 PM CDT EGFR STAT 10/01/2024 7:17 PM CDT DIFFERENTIAL AUTO STAT 10/01/2024 7:1 7 PM CDT LIPASE STAT 10/01/2024 7:17 PM CDT COMPREHENSIVE METABOLIC PANEL STAT 10/01/2024 7:17 PM CDT CBC WITH AUTO DIFFERENTIAL STAT 10/01/2024 7:17 PM CDT from Last 3 Months Results * CT Abdomen Pelvis W Contrast (10/01/2024 8:38 PM CDT) Anatomical Region Laterality Modality Body N/A Computed Tomogra phy 10/01/2024 8:42 PM CDT Impressions 10/01/2024 8:42 PM CDT Negative exam Electronically signed by: John Manzo MD Narrative 10/01/2024 8:42 PM CDT STUDY DESCRIPTION: CT ABDOMEN PELVIS W CONTRAST TECHNIQUE: Axial, sagittal and coronal 3 mm 95 Optiray 320 IV contrast; Without oral contrast. COMPARISON STUDIES: None HISTORY: LLQ abdominal pain FINDINGS: The liver spleen pancreas are unremarkable. No gross biliary ductal dilatation is seen. Gallbladder is unremarkable. The adrenal glands and kidneys are unremarkable. No visible stones no hydronephrosis is seen.. Bowel shows no thickened or dilated segments. Soft tissue structures of the pelvis are unremarkable. No free air or fluid is seen. No gross retroperitoneal masses or lymphadenopathy is seen. Procedure Note Jonh Manzo MD - 10/01/2024 STUDY DESCRIPTION: CT ABDOMEN PELVIS W CONTRAST TECHNIQUE: Axial, sagittal and coronal 3 mm 95 Optiray 320 IV contrast; Without oral contrast. COMPARISON STUDIES: None HISTORY: LLQ abdominal pain FINDINGS: The liver spleen pancreas are unremarkable. No gross biliary ductal dilatation is seen. Gallbladder is unremarkable. The adrenal glands and kidneys are unremarkable. No visible stones no hydronephrosis is seen.. Bowel shows no thickened or dilated segments. Soft tissue structures of the pelvis are unremarkable. No free air or fluid is seen. No gross retroperitoneal masses or lymphadenopathy is seen. IMPRESSION: Negative exam Electronically signed by: John Manzo MD us Paulie Fierro MD PhD IMG CT PROCEDURES F inal Result * Urinalysis reflex to microscopic and culture Urine (10/01/2024 7:55 PM CDT) Color, ur Straw Yellow [facility] Clarity, ur Clear Clear [facility] Specific gravity, ur 1.006 1.003 - 1.030 [facility] pH, urine 5.5 [facility] Comment: Interpretive Data U rine pH is affected by diet, medications, systemic acid-base disturbances, and renal tubular function. pH may affect urinary stone formation. For example, urine pH below 6.0 may help reduce the tendency for calcium phosphate stones and pH greater than 6.0 may reduce the tendency for uric acid stone formation. Source: [facility] [employer] Current Interpretive Data was last revised on 2017 Protein, ur ql Negative Negative [facility] Glucose, ur ql Negative Negative [facility] Ketones, ur Negative Negative [facility] Bilirubin, ur Negative Negative [facility] Blood, ur Negative Negative [facility] Urobilinogen, ur <2.0 <2.0 mg/dL [facility] Nitrite, ur Negative Negative [facility] Leukocyte esterase, ur Negative Negative [facility] UA reflex comment Reflex conditions for microscopic UA and culture not met. [facility] Urine 10/01/2024 7:55 PM CDT 10/01/2024 7:57 PM CDT Yola Kumar DO LAB MICROBIOLOGY - GENERA L ORDERABLES Final Result [place] [id number] [facility] Department [place] [address] * (ABNORMAL) eGFR (10/01/2024 7:17 PM CDT) [facility] eGFR 52(L) >=60 mL/min/1. 73 m2 Comment: Interpretive Data Reference Interval Normal >/= 90 mL/min/1.73m2 Mildly decreased* 60 - 89 mL/min/1.73m2 Mildly to moderately decreased 45 - 59 mL/min/1.73m2 Moderately to severely decreased 30 - 44 mL/min/1.73m2 Severely decreased 15 - 29 mL/min/1.73m2 Kidney Failure < 15 mL/min/1.73m2 *Relative to young adult level Estimated glomerular filtration rate is determined by the 2020 CKD-EPI equation recommended by the National Kidney Foundation (A Unifying Approach to GFR Estimation: Recommendations of the NKF-ASK Task Force on Reassessing the Inclusion of Race in Diagnosing Kidney Disease, JASN 2020). The CKD-EPI equation should not be used for patients with unstable renal function and has not been validated in children and those over 70. Current interpretive data was last reviewed 2021. Blood 10/01/2024 7:17 PM CDT 10/01/2024 7:28 PM CDT us Yola Kumar DO LAB BLOOD ORDERABLES Anaya l Result [address] [address] * Differential, auto (10/01/2024 7:17 PM CDT) Pathologist [facility] Neutrophil abs 4.26 1.50 - 6.50 K/cumm Imm gran abs 0.01 0.00 - 0.10 K/cumm [facility] Lymphocyte abs 2.77 0.80 - 3.30 K/cumm [facility] Monocyte abs 0.48 0.20 - 0.80 K/cumm [facility] Eosinophil abs 0.13 0.00 - 0.50 K/cumm [facility] Basophil abs 0.06 0.00 - 0.10 K/cumm [facility] Neutrophil pct 55.3 % [facility] Comment: Interpretive Data Percent cell count reference ranges are not reported, since discordance with absolute values may lead to misinterpretation of CBC data. Current Interpretive Data was last revised on 2017. Imm gran pct 0.1 % [facility] Comment: Interpretive Data Percent cell count reference ranges are not reported, since discordance with absolute values may lead to misinterpretation of CBC data. Current Interpretive Data was last revised on 2017. Lymphocyte pct 35.9 % [facility] Comment: Interpretive Data Percent cell count reference ranges are not reported, since discordance with absolute values may lead to misinterpretation of CBC data. Current Interpretive Data was last revised on 2017. Monocyte pct 6.2 % [facility] Comment: Interpretive Data Percent cell count reference ranges are not reported, since discordance with absolute values may lead to misinterpretation of CBC data. Current Interpretive Data was last revised on 2017. Eosinophil pct 1.7 % [facility] Comment: Interpretive Data Percent cell count reference ranges are not reported, since discordance with absolute values may lead to misinterpretation of CBC data. Current Interpretive Data was last revised on 2017. Basophil pct 0.8 % [facility] Comment: Interpretive Data Percent cell count reference ranges are not reported, since discordance with absolute values may lead to misinterpretation of CBC data. Current Interpretive Data was last revised on 2017. Blood 10/01/2024 7:17 PM CDT 10/01/2024 7:28 PM CDT us Yola Kumar DO LAB BLOOD ORDERABLES Anaya l Result [facility] [address] [facility] Department [place] [address] * CBC with auto differential (10/01/2024 7:17 PM CDT) WBC 7.71 3.80 - 9.90 K/cumm Hgb 14.5 11.9 - 15.5 g/dL [facility] Hct 42.2 35.6 - 45.5 % [facility] Plt 325 150 - 400 K/cumm [facility] MPV 9.9 9.1 - 12.3 fL [facility] RBC 4.57 3.90 - 5.20 M/cumm [facility] MCV 92.3 81.3 - 96.4 fL [facility] MCH 31.7 27.1 - 33.3 pg [facility] MCHC 34.4 32.3 - 35.7 g/dL [facility] RDW CV 11.9 11.1 - 14.9 % [facility] RDW SD 40.1 35.7 - 48.1 fL [facility] NRBC abs 0.00 0.00 - 0.01 K/cumm [facility] Blood Venous blood specimen / Unknown 10/01/2024 7:17 PM CDT 10/01/2024 7:28 PM CDT [facility] LAB BLOOD ORDERABLES Anaya l Result Performing Organization Address [facility]/ZIP Co de Phone Number [facility] [address] [facility] [place] [address] * Lipase (10/01/2024 7:17 PM CDT) [facility] Lipase 50 10 - 99 Units/L Blood Venous blood specimen / Unknown 10/01/2024 7:17 PM CDT 10/01/2024 7:28 PM CDT [facility] LAB BLOOD ORDERABLES Anaya l Result Performing Organization Address [facility]/ZIP Co de Phone Number [facility] [address] [facility] [place] [address] * (ABNORMAL) Comprehensive metabolic panel (10/01/2024 7:17 PM CDT) [facility] Sodium 139 135 - 145 mmol/L Potassium, pl 3.8 3.3 - 4.9 mmol/L [facility] Chloride 102 97 - 110 mmol/L [facility] CO2 25 22 - 32 mmol/L [facility] Anion gap 12 2 - 15 mmol/L [facility] BUN 25 6 - 25 mg/dL [facility] Creatinine 1.14(H) 0.60 - 1.10 mg/dL [facility] Glucose 122 70 - 199 mg/dL [facility] Comment: Interpretive Data Fasting glucose >/= 126 mg/dl is diagnostic for diabetes. Fasting is defined as no caloric intake for at least 8 hours. Fasting glucose between 100 mg/dl to 125 mg/dl is diagnostic of prediabetes. In a patient with classic symptoms of hyperglycemia or hyperglycemic crisis, a random glucose >/= 200 mg/dl is diagnostic for diabetes. In the absence of unequivocal hyperglycemia, results should be confirmed by repeat testing. The classification and Diagnosis of Diabetes Diabetes Care 202; 46: S19-S40. Current interpretive data was last revised 2022. Calcium 9.9 8.5 - 10.3 mg/dL [facility] Bilirubin, total 0.3 0.1 - 1.2 mg/dL [facility] Protein, pl 7.8 6.5 - 8.5 g/dL [facility] Albumin 4.5 3.5 - 5.2 g/dL [facility] Alk phos 55 40 - 130 Units/L [facility] ALT 29 7 - 45 Units/L [facility] AST 24 10 - 45 Units/L [facility] Blood 10/01/2024 7:17 PM CDT 10/01/2024 7:28 PM CDT us Yola Kumar DO LAB BLOOD ORDERABLES Anaya jamil Result [facility] [address] [facility] Department [place] [address] from Last 3 Months Insurance [place] [place] [employer] [place] Care Teams Scissors Grinder Relationship Specialty Start Date End Date Maurice Rousseau MD [address] [place] [address] PCP - General Internal Medicine 09/25/18
--- OUTSIDE RECORDS SUMMARY | 2024-12-14 08:14 | XMS_ITS | Encounter Summary ---
Author Organization [facility] Address [address] [place] [address] Care Team Providers Care [place] Representative Name Role Phone Unavailable Primary Care Provider Unavailabl e Encounter Details Date Type Department Care Team (Late st Contact Info) Description 04/29/2021 Lab Requisition [facility] DermPath Lab [address] [facility], [facility] [place] [id number] Jed Villa MD [address] [address] Social History Tobacco Use Types Packs/Day Years Used Date Smoking Tobacco: Never Assessed Comments Unknown Sex and Gender Information Value Date Recorded Sex Assigned at Not on file Legal Sex Female 9:[address] DEPUTY CLERK Gender Identity Not on file Sexual Orientation Not on file documented as of this encounter Plan of Treatment Not on file documented as of this encounter Procedures Procedure Name Priority Date/Time Associated Diagnosis Comments DERMPATH SLIDE CONSULT Routine 04/29/2021 12:[address] DEPUTY CLERK documented in this encounter Results * DERMPATH SLIDE CONSULT (04/29/2021 12:[address] DEPUTY CLERK) Case Report Dermatopathology Report Case: [id number] Authorizing Provider: Jed Villa MD Collected: 04/29/2021 12:00 AM Ordering Location: [facility]erm[facility] Lab Received: 04/29/2021 09:04 AM Pathologist: Jenni Stover MD Specimen: Slide(s), Left index finger, OSC# [id number] 5:[address] DEPUTY CLERK DERMATOPATHOLOGY LABORATORY Final Diagnosis Specimen A. 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 Jed Villa, a consult will be performed on 18 (H&E, Lissette A, ER, GATA3, CD68, P63, HMB45, MCK, CK7, CK5) slide(s) labeled [id number]. DF. All slides returned. Any additional sections, special stains or immunohistochemical stains performed by our laboratory will be kept here on file. 2 5:59 PM [facility] DERMATOPATHOLOGY LABORATORY Microscopic Description Specimen A. Slide(s), Left index finger, OSC# [id number]: Sections show an unremarkable epidermis. In the dermis there is an inflammatory infiltrate including epithelioid histiocytes arranged in vaguely palisaded granulomas and sparse lymphocytes. There is central elastophagocytosis. Birefringent material is not observed when the specimen is examined under polarized light. The provided immunohistochemical stains were reviewed. CD68 highlights the histiocytes. The infiltrate is negative for staining with Melan-A/Tracy-1, ER, GATA3, HMB45, p63, MCK, Ck7 and Ck5. After the hematoxylin and eosin stain is reviewed; additional stains were performed at [facility] dermatopathology to assess for infectious etiology and [...] Clinical correlation is recommended. 2 5:59 PM [facility] DERMATOPATHOLOGY LABORATORY Disclaimer An external and internal positive and negative controls are appropriate for the histochemical, immunohistochemical and immunofluorescence stain(s) in this case (if any), except where stated explicitly. The performance characteristics of the stain(s) cited in this report were developed and its performance characteristic determined by the Dermatopathology Laboratory at [facility], directed by Dr. Parmjit Vasquez. These tests need not be, and therefore are not, approved by the [place] Food and Drug Administration. The tests are used for clinical purposes. Billing Codes Specimen Charges Stain Charges 25423 1 [id number] 1 1 1 1 2 5:[address] DEPUTY CLERK DERMATOPATHOLOGY LABORATORY Embedded Images 2 5:[address] DEPUTY CLERK DERMATOPATHOLOGY LABORATORY Pathology/Cytolog y SLIDE / Unknown 04/29/2021 04/29/2021 9:[address] DEPUTY CLERK Jed Villa MD LAB - PATHOLOGY/CYTOLOGY ORDER CHRISTIE Final Result DERMATOPATHOLOGY LABORATORY [facility] - Department of Dermatology [facility] Medicine [address] [place] [address], [address] [phone] documented in this encounter Visit Diagnoses Not on filedocumented in this encounter
== END 2024-12-13 08:08 | disposition home or self-care (01) ==
PROVIDERS: Visit Provider Surgery Plastic and Reconstructive Surgery
DX: N64.81 Ptosis of breast (principal)
CPT/HCPCS: 88304